=== PATIENT | female | born 1950 | race Caucasian/White ===

== ENCOUNTER → 2016-08-04 | Outpatient (CLI) | payer OTHER ==
[~2016-08-04] MED LIST: ASPEC81; PAXIL; ZOLM1TAB3 PO
[2016-08-04 09:27] LABS: BASO % 0.1 %; BASO ABS # 0.01 K/uL (0-0.2); COMPLETE YES; EOS % 0.7 %; HEMATOCRIT 39.2 % (37-47); IG% 0.1 %; LYMPH % 8.9 %; LYMPH ABS # 0.65 K/uL (1.2-3.4); MEAN CELL VOLUME 86.9 fL (80-100); MEAN CORPUSCULAR HGB CONC 33.4 g/dl (32-36); MEAN PLATELET VOLUME 9.2 fL (7.4-10.4); MONO % 5.9 %; NEUT % 84.3 %; PLATELET COUNT 279 K/uL (130-400); RED BLOOD COUNT 4.51 M/uL (4.2-5.4); WHITE BLOOD COUNT 7.32 K/uL (4.8-10.8)
[2016-08-04 10:08] LABS: ALT/SGPT 24 U/L (12-78); BLOOD UREA NITROGEN 15 mg/dl (7-18); BUN/CREATININE RATIO 20.8 (10-20); CARBON DIOXIDE 28 mmol/L (21-32); CHLORIDE 103 mmol/L (98-107); CHOLESTEROL 180 mg/dl (0-200); CREATININE 0.71 mg/dl (0.60-1.20); GLUCOSE 103 mg/dl (70-99); POTASSIUM 3.9 mmol/L (3.5-5.1); SODIUM 140 mmol/L (136-145); TRIGLYCERIDES 171 mg/dl (0-150); VERY LOW DENSITY LIPOPROT CALC 34 mg/dl
[2016-08-04 10:11] LABS: ALB/GLOB RATIO 0.9 (0.9-2); ALKALINE PHOSPHATASE 113 U/L (45-117); AST/SGOT 22 U/L (15-37); CHOLESTEROL/HDL RATIO 3.9; HDL CHOLESTEROL 46 mg/dl; LDL CHOLESTEROL CALCULATED 100 mg/dl
[2016-08-04 10:30] LABS: CALCIUM 9.8 mg/dl (8.5-10.1)
== END | disposition home or self-care (01) ==
LOC: C.LAB1850 08:41
PROVIDERS: ATTEND Nurse Practitioner Adult Health
DX: E78.00 Pure hypercholesterolemia, unspecified (principal); E55.9 Vitamin D deficiency, unspecified

== ENCOUNTER → 2016-08-30 | Outpatient (CLI) | payer OTHER ==
--- NOTE | 2016-08-30 16:00 | MAMMOGRAPHY REPORT ---
BILATERAL DIGITAL SCREENING MAMMOGRAM WITH CAD: 08/30/2016 CLINICAL HISTORY: Routine screening. Patient has no complaints. TECHNIQUE: Bilateral CC and MLO views were obtained. Current study was also evaluated with a Comput er Aided Detection (CAD) system. COMPARISON: Comparison is made to exams dated: 08/25/2015 mammogram, 08/23/2014 mammogram, 04/26/2013 m ammogram, 05/09/2012 mammogram, 04/25/2012 mammogram, and 04/22/2011 mammogram - [facility] nter. BREAST COMPOSITION: There are scattered areas of fibroglandular density in both breasts. FINDINGS: The parenchymal pattern is unchanged. No developing mass, architectural distortion or clus ter of suspicious microcalcifications is seen in either breast. IMPRESSION: ACR BI-RADS CATEGORY 2: BENIGN There is no mammographic evidence of malignancy. A 1 year screening mammogram is recommended. The pa tient will receive written notification of the results. Approximately 10% of breast cancers are not detected with mammography. A negative mammographic report should not delay biopsy if a clinically suggestive mass is present. Brisa Tirado M.D. ay/:08/30/2016 14:39:50 [employer] Molder: Yelena RODRIGUEZ(dEuarda)(Kimani)(BD), [facility] letter sent: Normal 1/2 BI-RADS Code: ACR BI-RADS Category 2: Benign
== END | disposition home or self-care (01) ==
LOC: C.MAMM 13:14
PROVIDERS: ATTEND Obstetrics & Gynecology
DX: Z12.31 Encounter for screening mammogram for malignant neoplasm of breast (principal)

== ENCOUNTER → 2017-02-18 | Outpatient (CLI) | payer OTHER ==
[2017-02-18 10:15] LABS: BLOOD UREA NITROGEN 19 mg/dl (7-18); BUN/CREATININE RATIO 25.4 (10-20); CALCIUM 9.7 mg/dl (8.5-10.1); CARBON DIOXIDE 30 mmol/L (21-32); CHLORIDE 103 mmol/L (98-107); CREATININE 0.74 mg/dl (0.60-1.20); GLUCOSE 102 mg/dl (70-99); MAGNESIUM 2.7 mg/dl (1.8-2.4); SODIUM 136 mmol/L (136-145)
== END | disposition home or self-care (01) ==
LOC: C.LAB1850 08:48
PROVIDERS: ATTEND Nurse Practitioner Adult Health
DX: R25.2 Cramp and spasm (principal)

== ENCOUNTER 2021-01-29 12:23 | Inpatient (IN) ==
[2021-01-29 13:41] LABS: Basophils # (auto) 0.01 K/uL (0-0.2); Basophils % (auto) 0.1 %; Eosinophils # (auto) 0.12 K/uL (0-0.5); Eosinophils % (auto) 1.5 %; Hematocrit (blood only) 37.3 % (37-47); Hemoglobin 13.1 g/dL (12.0-16.0); Immature Granulocytes # (auto) 0.02 K/uL (0.00-0.02); Immature Granulocytes % (auto) 0.2 %; Lymphocytes # (auto) 0.28 K/uL (1.2-3.4); Lymphocytes % (auto) 3.4 %; Mean Corpuscular Hgb Conc 35.1 g/dL (32-36); Mean Corpuscular Volume 91.2 fL (80-100); Mean Platelet Volume 9.5 fL (7.4-10.4); Monocytes # (auto) 0.34 K/uL (0.11-0.59); Monocytes % (auto) 4.2 %; Neutrophils # (auto) 7.36 K/uL (1.4-6.5); Neutrophils % (auto) 90.6 %; Platelet Count 182 K/uL (130-400); RDW Coefficient of Variation 13.5 % (11.5-14.5); RDW Standard Deviation 44.8 fL (36.4-46.3); Red Blood Count 4.09 M/uL (4.2-5.4); White Blood Count 8.13 K/uL (4.8-10.8)
[2021-01-29 13:47] LABS: Appearance Urine Clear (Clear); Bacteria Urine Automated Negative (Negative); Blood Urine Negative (Negative); Color Urine Dark Yellow; Epithelial Cell Urine Auto 20-30 /lpf (0-5); Glucose Urine UA Negative (Negative); Ketones Urine Negative (Negative); Leukocyte Esterase Urine 1+ (Negative); Nitrite Urine Positive (Negative); Protein Urine Trace (Negative); Urobilinogen Urine Positive (Negative); pH Urine 5.5 (4.5-7.5)
[2021-01-29 13:55] LABS: Bilirubin Urine 3+ (Negative)
[2021-01-29 14:06] LABS: Alanine Aminotransferase 530 U/L (12-78); Albumin Level 3.9 gm/dl (3.4-5.0); Alkaline Phosphatase 371 U/L (45-117); Aspartate Aminotransferase 324 U/L (15-37); BUN Creatinine Ratio 13.9 (10-20); Bilirubin,Total 6.9 mg/dl (0.2-1); Blood Urea Nitrogen 14 mg/dl (7-18); Carbon Dioxide 28 mmol/L (21-32); Chloride 101 mmol/L (98-107); Creatinine Clr Calc Pharmacy 48.1 ml/min; Est GFR (African American) 67.7 ml/min; Est GFR (Non-African American) 58.4 ml/min; Globulin 4.1 gm/dl (2.5-4.0); Glucose 123 mg/dl (70-99); Lipase 193 U/L (73-393); Potassium 3.1 mmol/L (3.5-5.1); Sodium 135 mmol/L (136-145)
[2021-01-29] MEDS ORDERED: SODIUM CHLORIDE 0.9% 1000ML 1,000 ML IV STA (14:31)
[2021-01-29 14:52] LABS: Prothrombin Time 10.5 Seconds (9.0-12.0)
--- NOTE | 2021-01-29 15:03 | Emergency Department Note ---
Impression & Plan Jaundice, obstructive, intrahepatic, Vomiting, Common bile duct dilatation ED Provider Note NAME: LUIS CARLOS COVARRUBIAS AGE: 70 SEX: F : 1950 ARRIVES VIA: Walk-In INFORMANT: Patient, ED PROVIDER(S): Jordon Wilkinson DO CHIEF COMPLAINT: Fever HPI:The patient is a 70-year-old female who presented to the emergency department for an evaluation of febrile illness. The patient has a history of B- cell lymphoma. She has a history of Waldenstrm's macroglobulinemia. She is been treated with chemotherapy. She has had no treatment since October of this year. The patient states that she has noticed over the course the last few days she has become very weak. She also has extensive pain from the history of previously noted cancer. The patient states that she has known metastatic disease. She states that she started noticing that her skin was turning yellow. She has a history of gallbladder removal in the past. The patient states that she had a retained ductal stone as well which had to be removed prior to having chemotherapy. The patient denies having any recent trauma. She does state that she is noticing back pain as well as nausea vomiting. She is have significant troubles keeping down food because of the amount of vomiting. The patient also notices upper abdominal pain. She describes it as lower chest and upper abdominal pain. She did have a fall recently and injured her right ribs but she states this pain is different. ROS: See above HPI for pertinent positives & negatives. A total of 10 systems reviewed and were otherwise negative. PAST MEDICAL HISTORY: See Below PAST SURGICAL HISTORY: See Below FAMILY HISTORY: See Below SOCIAL HISTORY: See Below HOME MEDICATIONS: See Below ALLERGIES: See Below VITALS: See Below PHYSICAL EXAMINATION: GENERAL: Patient is awake alert in no acute distress patient is resting comfortably and showing no signs of anxiety EYES: The conjunctivae are icteric. The pupils are round and reactive. EARS, NOSE, MOUTH AND THROAT: The nose is without any evidence of any deformity. Mucous membranes are dry. NECK: The neck is nontender and supple. RESPIRATORY: Normal respiratory effort is noted there is no evidence of wheezing rhonchi or rales CARDIOVASCULAR: Regular rate and rhythm noted there no murmurs rubs or gallops normal S1 normal S2. GASTROINTESTINAL: The abdomen is soft and mildly distended. There is diffuse upper abdominal tenderness to palpation. There is no guarding rigidity. MUSCULOSKELETAL/EXTREMITIES: There is no evidence of gross deformity full range of motion is noted in the hips and shoulders. SKIN: Skin is jaundiced. There is slight pedal edema but no pitting edema. NEUROLOGIC: Patient is awake alert and oriented x3 strength is symmetric patellar reflexes are 2+ bilaterally MEDICAL DECISION MAKING: The patient is a 70-year-old female who presented to the emergency department for an evaluation of vomiting. The patient noticed jaundice. The patient has had similar episodes in the past with common bile duct stones. She did have her gallbladder removed in the past. I discussed the patient's laboratory and radiographic studies with her. She was treated with fluids and IV antiemetics. She was also started on IV antibiotics. She was reevaluated multiple times. On subsequent reevaluation she was feeling much better. I discussed her case with the on-call general surgeon as well as the on-call outside rigger group. The patient likely will require an ERCP. She has had this procedure in the past. I did recommend an MRCP in the meantime and continued IV antibiotics and n.p.o. after midnight. I discussed her case with the on-call [facility] hospitalist group. They will evaluate the patient in the emergency department for further management and disposition. Triage Nursing notes reviewed. Prior medical records reviewed Vital Signs: reviewed and remarkable for hypertension tachycardia and tachypnea. Differential diagnosis: Cardiac ischemia, aortic dissection, pulmonary embolism, pneumothorax, pneumonia, pericarditis, myocarditis, esophageal rupture, GERD, cholecystitis, pancreatitis, musculoskeletal, as well as other pathologies. ER treatment provided: See below Diagnostics interpreted by me: ECG: EKG was obtained in the emergency department. My interpretation is sinus rhythm at 86 bpm. There was no ectopy. Poor R wave progression was noted with a left bundle branch block pattern suggested. No previous tracing was available. Cardiac Monitoring: An order was placed for continuous cardiac monitoring. The monitor shows a rate of 100 bpm with sinus tachycardia rhythm. Laboratory studies: As stated above and show below. Imaging studies: See below Consultation(s): I discussed this case with Dr. Khan who is on-call for the general surgical group. I discussed this case with Dr. Briceño who is on-call for unassigned gastroenterology. He does recommend that the patient be n.p.o. after midnight in preparation for possible ERCP. He does recommend antibiotics. He also recommends MRCP if available this evening. I discussed this case with Dr. Eduardo who is on-call for the [facility] hospitalist group. Past Med/Surg History Medical History Anemia long time ago Hearing deficit Migraine Osteoarthritis PVC's (premature ventricular contractions) Trigeminal neuralgia of left side of face Surgical History History of bone marrow biopsy History of cholecystectomy History of colonoscopy with polypectomy History of dilatation and curettage History of left cataract extraction History of right breast biopsy with cyst removal---benign History of tonsillectomy History of tooth extraction Family History Father Family hx colonic polyps Myocardial infarction Mother Family hx colonic polyps Grandmother (Paternal) Family hx of colon cancer Colorectal cancer Uncle Family hx of colon cancer paternal Colorectal cancer Sister Breast cancer Lung cancer Other Allergies Cancer Heart disease Lung disease No family history of adverse response to anesthesia Denies family history of Tuberculosis Ovarian cancer Prostate cancer Diabetes Emphysema, unspecified Asthma Social History Smoking Status: Never smoker Second Hand Exposure: No; Hx Alcohol Use: Yes Alcohol type: beer, wine and hard liquor Alcohol Intake Frequency: Monthly or Less Hx Substance Use: No Preferred Language: Mozambican Communication Ability: Effective Visual Impairment: No Limitations Hearing Ability: Use of Hearing Aid Massotherapist Required: No Beliefs That Will Affect Care: None marital status: Current Living Situation: Spouse current occupational status: retired Feels Safe at Home: Yes Childhood Exposure to Second-Hand Smoke: No Dental Care, Regularly: Yes Physical Activity Frequency: Daily Seatbelt Use: always Sunscreen Use: Yes Assistive Devices: Glasses and Hearing Aid - Bilateral Allergies Allergies Allergy/AdvReac Type Severity Reaction Status Date / Time Penicillins Allergy Intermediate HIVES A Verified 01/29/21 15:41 CHILD Sulfa (Sulfonamide Allergy Intermediate HIVES A Verified 01/29/21 15:41 Antibiotics) CHILD rituximab [From Rituxan] Allergy pain, Verified 01/29/21 15:41 nausea, swollen mouth and uvula levofloxacin AdvReac Mild LEG PAIN Verified 01/29/21 15:41 Home Meds Home Medications Medication Instructions Recorded Confirmed cholecalciferol (vitamin D3) 50 2,000 unit PO QAM 02/03/18 01/29/21 mcg (2,000 unit) tablet (Vitamin D3) potassium 99 mg tablet 99 mg PO QAM 02/03/18 01/29/21 vitamin B complex 1 tab PO QAM 02/03/18 01/29/21 calcium carb-vit D3-minerals 600 1 tab PO QAM 12/17/19 01/29/21 mg calcium-400 unit tablet magnesium oxide 400 mg PO QAM 12/17/19 01/29/21 biotin 400 mcg tablet 400 mcg PO DAILY tab 09/24/20 01/29/21 acyclovir 400 mg tablet 400 mg PO BID 01/29/21 01/29/21 zolmitriptan 2.5 mg tablet (Zomig) 0 mg PO UD PRN 01/29/21 01/29/21 Previous Rx's Medication Instructions Recorded pantoprazole 40 mg tablet,delayed 40 mg PO QAM #30 tab 12/26/19 release Results & Data (ED) Vital Signs Vital Signs - 24 hr 01/29/21 12:32 01/29/21 14:30 01/29/21 14:33 Temperature 37.1 C Temperature Source Skin Pulse Rate 88 94 H Pulse Rate [Apical] 93 H Pulse Rate from SpO2 Sensor 93 H Pulse Rhythm Regular Pulse Strength Normal Respiratory Rate 20 16 24 Respiratory Effort / Characteristics Non-Labored Spontaneous Non-Labored Spontaneous Respiratory Depth Normal Normal Respiratory Pattern Regular Regular Blood Pressure 159/84 H Blood Pressure [Left Arm] 175/60 H Blood Pressure Mean 109 Blood Pressure Mean [Left Arm] 98 Pulse Oximetry 97 97 74 L Oxygen Delivery Method Room Air Room Air Sepsis Recent Fever Within 48 Hours No Sepsis New/Unexplained Change in Mental Status N/A Sepsis Action Taken by Nursing No Action Required 01/29/21 15:00 01/29/21 15:30 01/29/21 16:00 Temperature Temperature Source Pulse Rate 94 H 95 H 97 H Pulse Rate [Apical] Pulse Rate from SpO2 Sensor 95 H 95 H 97 H Pulse Rhythm Pulse Strength Respiratory Rate 12 20 32 H Respiratory Effort / Characteristics Respiratory Depth Respiratory Pattern Blood Pressure Blood Pressure [Left Arm] Blood Pressure Mean Blood Pressure Mean [Left Arm] Pulse Oximetry 98 96 96 Oxygen Delivery Method Sepsis Recent Fever Within 48 Hours Sepsis New/Unexplained Change in Mental Status Sepsis Action Taken by Nursing 01/29/21 16:30 01/29/21 17:00 01/29/21 17:31 Temperature Temperature Source Pulse Rate 102 H 100 H Pulse Rate [Apical] Pulse Rate from SpO2 Sensor 103 H 100 H 99 H Pulse Rhythm Pulse Strength Respiratory Rate 21 36 H Respiratory Effort / Characteristics Respiratory Depth Respiratory Pattern Blood Pressure 175/60 H Blood Pressure [Left Arm] Blood Pressure Mean 98 Blood Pressure Mean [Left Arm] Pulse Oximetry 94 93 95 Oxygen Delivery Method Sepsis Recent Fever Within 48 Hours Sepsis New/Unexplained Change in Mental Status Sepsis Action Taken by [facility] Medications Current Medication List: was personally reviewed by me Laboratory Data Attestation: I reviewed the patient's lab results. Result diagrams: 01/29/21 13:20 01/29/21 13:20 Lab Results 01/29/21 01/29/21 01/29/21 Range/Units 13:20 13:20 13:20 WBC 8.13 (4.8-10.8) K/uL RBC 4.09 L (4.2-5.4) M/uL Hgb 13.1 (12.0-16.0) g/dL Hct 37.3 (37-47) % MCV 91.2 (80-100) fL MCH 32.0 (25-34) pg MCHC 35.1 (32-36) g/dL RDW Std Deviation 44.8 (36.4-46.3) fL RDW Coeff of Vignesh 13.5 (11.5-14.5) % Plt Count 182 (130-400) K/uL MPV 9.5 (7.4-10.4) fL Immature Gran % (Auto) 0.2 % Neut % (Auto) 90.6 % Lymph % (Auto) 3.4 % Navarro % (Auto) 4.2 % Eos % (Auto) 1.5 % Baso % (Auto) 0.1 % Neut # (Auto) 7.36 H (1.4-6.5) K/uL Lymph # (Auto) 0.28 L (1.2-3.4) K/uL Navarro # (Auto) 0.34 (0.11-0.59) K/uL Eos # (Auto) 0.12 (0-0.5) K/uL Baso # (Auto) 0.01 (0-0.2) K/uL Immature Gran # (Auto) 0.02 (0.00-0.02) K/uL ESR (0-30) mm/hr PT (9.0-12.0) Seconds INR (0.9-1.1) Sodium 135 L (136-145) mmol/L Potassium 3.1 L (3.5-5.1) mmol/L Chloride 101 (98-107) mmol/L Carbon Dioxide 28 (21-32) mmol/L Anion Gap 6.0 (3-11) BUN 14 (7-18) mg/dl Creatinine 0.98 (0.6-1.2) mg/dl Est Cr Clr Drug Dosing 48.1 ml/min Est GFR ( Amer) 67.7 ml/min Est GFR (Non-Af Amer) 58.4 ml/min BUN/Creatinine Ratio 13.9 (10-20) Glucose 123 H (70-99) mg/dl Calcium 10.0 (8.5-10.1) mg/dl Total Bilirubin 6.9 H (0.2-1) mg/dl Direct Bilirubin 5.6 H (0-0.2) mg/dl AST 324 H (15-37) U/L ALT 530 H (12-78) U/L Alkaline Phosphatase 371 H (45-117) U/L Troponin I < 0.015 (0-0.045) ng/ml Total Protein 8.0 (6.4-8.2) gm/dl Albumin 3.9 (3.4-5.0) gm/dl Globulin 4.1 H (2.5-4.0) gm/dl Albumin/Globulin Ratio 1.0 (0.9-2) Lipase 193 (73-393) U/L Procalcitonin (0-0.5) ng/ml Urine Color Dark Yellow Urine Appearance Clear (Clear) Urine pH 5.5 (4.5-7.5) Ur Specific Keene 1.020 (1.000-1.030) Urine Protein Trace H (Negative) Urine Glucose (UA) Negative (Negative) Urine Ketones Negative (Negative) Urine Blood Negative (Negative) Urine Nitrite Positive A (Negative) Urine Bilirubin 3+ H (Negative) Urine Urobilinogen Positive H (Negative) Ur Leukocyte Esterase 1+ H (Negative) Urine WBC (Auto) 5-10 H (0-5) /hpf Urine RBC (Auto) 5-10 H (0-4) /hpf U Hyaline Cast (Auto) 5-10 H (0-5) /lpf U Epithel Cells (Auto) 20-30 H (0-5) /lpf Urine Bacteria (Auto) Negative (Negative) SARS-CoV-2, RNA, NAAT (NEGATIVE) 01/29/21 01/29/21 01/29/21 Range/Units 13:20 13:20 13:20 WBC (4.8-10.8) K/uL RBC (4.2-5.4) M/uL Hgb (12.0-16.0) g/dL Hct (37-47) % MCV (80-100) fL MCH (25-34) pg MCHC (32-36) g/dL RDW Std Deviation (36.4-46.3) fL RDW Coeff of Vignesh (11.5-14.5) % Plt Count (130-400) K/uL MPV (7.4-10.4) fL Immature Gran % (Auto) % Neut % (Auto) % Lymph % (Auto) % Navarro % (Auto) % Eos % (Auto) % Baso % (Auto) % Neut # (Auto) (1.4-6.5) K/uL Lymph # (Auto) (1.2-3.4) K/uL Navarro # (Auto) (0.11-0.59) K/uL Eos # (Auto) (0-0.5) K/uL Baso # (Auto) (0-0.2) K/uL Immature Gran # (Auto) (0.00-0.02) K/uL ESR (0-30) mm/hr PT 10.5 (9.0-12.0) Seconds INR 1.0 (0.9-1.1) Sodium (136-145) mmol/L Potassium (3.5-5.1) mmol/L Chloride (98-107) mmol/L Carbon Dioxide (21-32) mmol/L Anion Gap (3-11) BUN (7-18) mg/dl Creatinine (0.6-1.2) mg/dl Est Cr Clr Drug Dosing ml/min Est GFR ( Amer) ml/min Est GFR (Non-Af Amer) ml/min BUN/Creatinine Ratio (10-20) Glucose (70-99) mg/dl Calcium (8.5-10.1) mg/dl Total Bilirubin (0.2-1) mg/dl Direct Bilirubin (0-0.2) mg/dl AST (15-37) U/L ALT (12-78) U/L Alkaline Phosphatase (45-117) U/L Troponin I Cancelled (0-0.045) ng/ml Total Protein (6.4-8.2) gm/dl Albumin (3.4-5.0) gm/dl Globulin (2.5-4.0) gm/dl Albumin/Globulin Ratio (0.9-2) Lipase (73-393) U/L Procalcitonin 0.70 H (0-0.5) ng/ml Urine Color Urine Appearance (Clear) Urine pH (4.5-7.5) Ur Specific Keene (1.000-1.030) Urine Protein (Negative) Urine Glucose (UA) (Negative) Urine Ketones (Negative) Urine Blood (Negative) Urine Nitrite (Negative) Urine Bilirubin (Negative) Urine Urobilinogen (Negative) Ur Leukocyte Esterase (Negative) Urine WBC (Auto) (0-5) /hpf Urine RBC (Auto) (0-4) /hpf U Hyaline Cast (Auto) (0-5) /lpf U Epithel Cells (Auto) (0-5) /lpf Urine Bacteria (Auto) (Negative) SARS-CoV-2, RNA, NAAT (NEGATIVE) 01/29/21 01/29/21 Range/Units 13:20 17:23 WBC (4.8-10.8) K/uL RBC (4.2-5.4) M/uL Hgb (12.0-16.0) g/dL Hct (37-47) % MCV (80-100) fL MCH (25-34) pg MCHC (32-36) g/dL RDW Std Deviation (36.4-46.3) fL RDW Coeff of Vignesh (11.5-14.5) % Plt Count (130-400) K/uL MPV (7.4-10.4) fL Immature Gran % (Auto) % Neut % (Auto) % Lymph % (Auto) % Navarro % (Auto) % Eos % (Auto) % Baso % (Auto) % Neut # (Auto) (1.4-6.5) K/uL Lymph # (Auto) (1.2-3.4) K/uL Navarro # (Auto) (0.11-0.59) K/uL Eos # (Auto) (0-0.5) K/uL Baso # (Auto) (0-0.2) K/uL Immature Gran # (Auto) (0.00-0.02) K/uL ESR 33 H (0-30) mm/hr PT (9.0-12.0) Seconds INR (0.9-1.1) Sodium (136-145) mmol/L Potassium (3.5-5.1) mmol/L Chloride (98-107) mmol/L Carbon Dioxide (21-32) mmol/L Anion Gap (3-11) BUN (7-18) mg/dl Creatinine (0.6-1.2) mg/dl Est Cr Clr Drug Dosing ml/min Est GFR ( Amer) ml/min Est GFR (Non-Af Amer) ml/min BUN/Creatinine Ratio (10-20) Glucose (70-99) mg/dl Calcium (8.5-10.1) mg/dl Total Bilirubin (0.2-1) mg/dl Direct Bilirubin (0-0.2) mg/dl AST (15-37) U/L ALT (12-78) U/L Alkaline Phosphatase (45-117) U/L Troponin I (0-0.045) ng/ml Total Protein (6.4-8.2) gm/dl Albumin (3.4-5.0) gm/dl Globulin (2.5-4.0) gm/dl Albumin/Globulin Ratio (0.9-2) Lipase (73-393) U/L Procalcitonin (0-0.5) ng/ml Urine Color Urine Appearance (Clear) Urine pH (4.5-7.5) Ur Specific Keene (1.000-1.030) Urine Protein (Negative) Urine Glucose (UA) (Negative) Urine Ketones (Negative) Urine Blood (Negative) Urine Nitrite (Negative) Urine Bilirubin (Negative) Urine Urobilinogen (Negative) Ur Leukocyte Esterase (Negative) Urine WBC (Auto) (0-5) /hpf Urine RBC (Auto) (0-4) /hpf U Hyaline Cast (Auto) (0-5) /lpf U Epithel Cells (Auto) (0-5) /lpf Urine Bacteria (Auto) (Negative) SARS-CoV-2, RNA, NAAT NEGATIVE (NEGATIVE) Administered Medications Discontinued Medications Sodium Chloride (Nss 1000ml) 1,000 mls @ 999 mls/hr IV .[id number] STA Stop: 01/29/21 15:31 Last Infusion: 01/29/21 16:10 Dose: 0 mls/hr Documented by: [id number] Admin: 01/29/21 15:07 Dose: 999 mls/hr Documented by: [id number] Ceftriaxone Sodium (Rocephin) 1,000 mg in 50 mls @ 100 mls/hr IV NOW STA Stop: 01/29/21 15:51 Last Infusion: 01/29/21 17:10 Dose: 0 mls/hr Documented by: [id number] Admin: 01/29/21 16:31 Dose: 100 mls/hr Documented by: [id number] Ioversol (Optiray 320 125ml) 119 ml IV ONCE ONE Stop: 01/29/21 16:36 Last Admin: 01/29/21 16:35 Dose: 119 ml Documented by: [id number] Imaging Data Radiologist's Impression: Abdomen/Pelvis CT 01/29/21 14:31 CT OF THE ABDOMEN AND PELVIS WITH CONTRAST CLINICAL HISTORY: Upper abdomen pain. History of Waldenstrom's macroglobulinemia. COMPARISON STUDY: CT of the abdomen and pelvis December 24, 2020. TECHNIQUE: Following IV administration of 119 mL of Optiray, axial images of the abdomen and pelvis were obtained from the lung bases to the proximal femurs. Images were reviewed in the axial, sagittal, and coronal planes. IV contrast was administered without complication. Automated exposure control was utilized for the study. A dose lowering technique was utilized adhering to the principles of ALARA. FINDINGS: The chest CT will reported separately. No pneumatosis, free air or portal venous gas is present. The previously described submucosal lesion within the gastric cardia is better depicted on prior exam with oral contrast. A left hepatic lobe cyst measures 4.1 cm. Intermediate attenuation 2.7 cm right hepatic lobe lesion on image 146 of [id number] of December 24, 2020. Low- attenuation lobulated lesion inferior to the left adrenal gland is unchanged. This favors a lymphangioma. The adrenal glands and pancreas are unremarkable. There is no pancreatic ductal dilatation. There is no peripancreatic infiltration. Biliary ductal dilatation is developed since prior exam. Common bile duct measures 1.2 cm in caliber. There may be mild wall enhancement of the common hepatic and common bile duct. In addition, there is suspected infiltration/trace fluid within the cortez hepatis. Splenomegaly is similar to prior exam. Several hypodense splenic lesions measuring up to 2.9 cm are similar to prior CT. These have decreased in size since earlier CT of November 24. There is no hydronephrosis. The kidneys are unremarkable. Sigmoid diverticulosis is noted without evidence for acute diverticulitis. Caliber and wall thickness of small and large bowel are normal. The appendix is normal. Calcified fibroids are incidentally noted. There is no acute fracture or jeanie picious lesion within the visualized skeletal structures. IMPRESSION: 1. Interval development of biliary ductal dilatation with mild wall enhancement of the common hepatic and common bile ducts and trace fluid/infiltration within the cortez hepatis. The findings are nonspecific and cholangitis is within the differential. If abnormal liver function tests, GI consultation is recommended. 2. No significant change in splenomegaly and several hypodense splenic lesions since CT of December 24, 2020. Findings remain improved when compared to initial CT of December 03, 2019. 3. No change in indeterminate 2.7 cm right hepatic lobe lesion. 4. Redemonstration of a suspected submucosal lesion within the gastric cardia. ACT 112: Negative or not required by law. Electronically signed by: Ron Armas M.D. 01/29/2021 5:24 PM Chest X-Ray 01/29/21 14:32 XR chest 1V portable CLINICAL HISTORY: Fever COMPARISON STUDY: Chest CT December 24, 2020. FINDINGS: Lung volumes are normal. Lungs are clear. There is no pneumothorax or pleural effusion. Mild cardiomegaly is unchanged. Mediastinal contours are normal. There is no evidence for pulmonary edema. IMPRESSION: No acute cardiopulmonary findings. ACT 112: Negative or not required by law. Electronically signed by: Ron Armas M.D. 01/29/2021 3:57 PM Chest CTA 01/29/21 15:03 CT ANGIOGRAPHY OF THE CHEST, PULMONARY EMBOLUS PROTOCOL CLINICAL HISTORY: Atypical chest pain. Upper abdominal pain. History of Waldenstrom's macroglobulinemia. Evaluate for pulmonary embolus. COMPARISON STUDY: Chest CT December 24, 2020. Chest radiograph performed earlier today TECHNIQUE: Following IV administration of 119 mL of Optiray, helical axial images of the chest were obtained utilizing the pulmonary embolus protocol. Ma ximal intensity projections and sagittal and coronal reformats were viewed on an independent 3D workstation. IV contrast was administered without complication. Automated exposure control was utilized for the study. A dose lowering technique was utilized adhering to the principles of ALARA. CT DOSE: 558.82 mGy.cm FINDINGS: No pulmonary emboli are identified. There is no thoracic aortic dissection. Mild cardiomegaly is noted. There is no pericardial effusion. No enlarged axillary, mediastinal or hilar lymph nodes are present. No pneumothorax or pleural effusion is noted. Linear and groundglass opacities reflect atelectasis. No acute rib or thoracic spine fractures identified. Abdomen and pelvis will be reported separately. Splenomegaly is better depicted on that exam. There is a left hepatic lobe cyst. IMPRESSION: 1. No pulmonary emboli identified. 2. No acute process within the chest. ACT 112: Negative or not required by law. Electronically signed by: Ron Armas M.D. 01/29/2021 5:05 PM Discharge Plan Visit Data Chief Complaint: Fever Stated Complaint: PAIN IN TORSO/VOMITING/FEVER UP TO 101.5 ED Provider: Jordon Wilkinson Discharge Problem: Jaundice, obstructive, intrahepatic, Vomiting, Common bile duct dilatation Patient Disposition: Being Evaluated by Hospitalist Forms Stand Alone Forms: [facility] Prescriptions Prescriptions: No Action pantoprazole 40 mg tablet,delayed release (DR/EC) 40 mg PO QAM Qty: 30 RF: 5 potassium 99 mg Tablet 99 mg PO QAM RF: 0 vitamin B complex Tablet 1 tab PO QAM RF: 0 cholecalciferol (vitamin D3) [Vitamin D3] 2,000 unit Tablet 2,000 unit PO QAM RF: 0 calcium carbonate-vit D3-min 600 mg calcium- 400 unit Tablet 1 tab PO QAM RF: 0 magnesium oxide 400 mg magnesium Tablet 400 mg PO QAM RF: 0 biotin 400 mcg tablet 400 mcg PO DAILY RF: 0 acyclovir 400 mg tablet 400 mg PO BID RF: 0 zolmitriptan [Zomig] 2.5 mg Tablet 0 mg PO UD PRN (Reason: Migraine Headache) RF: 0 Referrals Referrals: Sigrid Reese MD [Primary Care Provider] -
[2021-01-29] MEDS ORDERED: cefTRIAXone SODIUM 1,000 MG/50 ML BAG IV STA (15:22)
[2021-01-29 15:47] LABS: Troponin I < 0.015 ng/ml (0-0.045)
--- NOTE | 2021-01-29 15:58 | XRay Report ---
XR chest 1V portable CLINICAL HISTORY: Fever COMPARISON STUDY: Chest CT December 24, 2020. FINDINGS: Lung volumes are normal. Lungs are clear. There is no pneumothorax or pleural effusion. Mil d cardiomegaly is unchanged. Mediastinal contours are normal. There is no evidence for pulmonary sammy a. IMPRESSION: No acute cardiopulmonary findings. ACT 112: Negative or not required by law. Electronically signed by: Ron Armas M.D. 01/29/2021 3:57 PM
[2021-01-29] MEDS ORDERED: OPTIRAY 320 125ml IV ONE (16:35)
--- NOTE | 2021-01-29 17:06 | CT Scan Report ---
CT ANGIOGRAPHY OF THE CHEST, PULMONARY EMBOLUS PROTOCOL CLINICAL HISTORY: Atypical chest pain. Upper abdominal pain. History of Waldenstrom's macroglobulinem ia. Evaluate for pulmonary embolus. COMPARISON STUDY: Chest CT December 24, 2020. Chest radiograph performed earlier today TECHNIQUE: Following IV administration of 119 mL of Optiray, helical axial images of the chest were o btained utilizing the pulmonary embolus protocol. Maximal intensity projections and sagittal and cor onal reformats were viewed on an independent 3D workstation. IV contrast was administered without co mplication. Automated exposure control was utilized for the study. A dose lowering technique was ut ilized adhering to the principles of ALARA. CT DOSE: 558.82 mGy.cm FINDINGS: No pulmonary emboli are identified. There is no thoracic aortic dissection. Mild cardiomeg pierre is noted. There is no pericardial effusion. No enlarged axillary, mediastinal or hilar lymph node s are present. No pneumothorax or pleural effusion is noted. Linear and groundglass opacities reflect atelectasis. No acute rib or thoracic spine fractures identified. Abdomen and pelvis will be reporte d separately. Splenomegaly is better depicted on that exam. There is a left hepatic lobe cyst. IMPRESSION: 1. No pulmonary emboli identified. 2. No acute process within the chest. ACT 112: Negative or not required by law. Electronically signed by: Ron Armas M.D. 01/29/2021 5:05 PM
--- NOTE | 2021-01-29 17:25 | CT Scan Report ---
CT OF THE ABDOMEN AND PELVIS WITH CONTRAST CLINICAL HISTORY: Upper abdomen pain. History of Waldenstrom's macroglobulinemia. COMPARISON STUDY: CT of the abdomen and pelvis December 24, 2020. TECHNIQUE: Following IV administration of 119 mL of Optiray, axial images of the abdomen and pelvis w ere obtained from the lung bases to the proximal femurs. Images were reviewed in the axial, sagittal, and coronal planes. IV contrast was administered without complication. Automated exposure control w as utilized for the study. A dose lowering technique was utilized adhering to the principles of BRIDGETTE Cates. FINDINGS: The chest CT will reported separately. No pneumatosis, free air or portal venous gas is pre sent. The previously described submucosal lesion within the gastric cardia is better depicted on prio r exam with oral contrast. A left hepatic lobe cyst measures 4.1 cm. Intermediate attenuation 2.7 cm right hepatic lobe lesion on image 146 of [address] of December 24, 2020. Low-attenuat ion lobulated lesion inferior to the left adrenal gland is unchanged. This favors a lymphangioma. The adrenal glands and pancreas are unremarkable. There is no pancreatic ductal dilatation. There is no peripancreatic infiltration. Biliary ductal dilatation is developed since prior exam. Common bile kadi t measures 1.2 cm in caliber. There may be mild wall enhancement of the common hepatic and common naldo e duct. In addition, there is suspected infiltration/trace fluid within the cortez hepatis. Splenomega ly is similar to prior exam. Several hypodense splenic lesions measuring up to 2.9 cm are similar to prior CT. These have decreased in size since earlier CT of November 25, 2019. There is no hydronephr osis. The kidneys are unremarkable. Sigmoid diverticulosis is noted without evidence for acute divert iculitis. Caliber and wall thickness of small and large bowel are normal. The appendix is normal. Luis cified fibroids are incidentally noted. There is no acute fracture or suspicious lesion within the vi sualized skeletal structures. IMPRESSION: 1. Interval development of biliary ductal dilatation with mild wall enhancement of the common hepatic and common bile ducts and trace fluid/infiltration within the cortez hepatis. The findings are nonspe cific and cholangitis is within the differential. If abnormal liver function tests, GI consultation i s recommended. 2. No significant change in splenomegaly and several hypodense splenic lesions since CT of December. Findings remain improved when compared to initial CT of December 03, 2019. 3. No change in indeterminate 2.7 cm right hepatic lobe lesion. 4. Redemonstration of a suspected submucosal lesion within the gastric cardia. ACT 112: Negative or not required by law. Electronically signed by: Ron Armas M.D. 01/29/2021 5:24 PM
[2021-01-29 17:57] LABS: Bilirubin Direct 5.6 mg/dl (0-0.2)
[2021-01-29] MEDS ORDERED: ERTAPENEM SODIUM 1,000 MG in SODIUM CHLORIDE 0.9% 50 ML IV ONE (19:00)
--- NOTE | 2021-01-29 19:09 | History & Physical Report ---
Date of Service January 29, 2021 Assessment & Plan (1) Jaundice, obstructive, intrahepatic: Plan: Cholangitis with acute liver injury- elevated Liver enzymes with jaundice- normal INR - biliary ductal dilation- Elevated LFTs, ALKpo4, Bili, Normal lipase - Will keep NPO - MRCP - Rocephin 2gm IV q24 with Ertapenem 1GM IV q24----> If worsens or not clinically better change to Zosyn - GI consult- appreciate assistance - Follow daily CMPs and INR - Blood cultures pending - PCT 0.70 (2) Common bile duct dilatation: Plan: As above Cholangitis (3) Vomiting: Plan: Resloved - follow (4) B-cell lymphoma: Plan: Follows with Hem/ONC giesinger - She has completed her CHEMO regime- is in follow up phase - Continue Acyclovir prophy 400mg PO daily (5) Gastritis: Plan: Continue omeprazole (6) Hypercholesterolemia: Plan: Not on lipid lowering medications (7) Vitamin D deficiency: Plan: Hold vitamin D and Cholecalciferol History of Present Illness Primary Care Provider: Sigrid Reese MD 70 YOF with past medical history of: B-cell lymphoma on bendamustine (allergic reactions to Rituxan), gastric fundus mass, gastritis, cholecystectomy (>20 years ago), with biliary sphincterotomy in , MR. Patrick comes into the EMD today for complaints of abdominal pain, right lateral chest wall pain, and jaundice. The patient states that she fell on Tuesday night hitting her right chest wall and started to have some "banding like tightness around the front of her chest this waxed and waned up until Tuesday. Tuesday she had some diarrhea and abdominal pain that was associated with fever 101.5, she then came to the parking lot of the hospital, where she threw up 3 times and immediately felt better. She convinced her to take her home. Today her daughters came to see her and noticed that she was jaundiced and convinced her to come to the EMD. In the EMD she had routine labs drawn, CXR, CT scan of the abdomen and pelvis performed. Her CMP was noted for Elevated LFTs, elevated bilirubin, elevated ALKPo4, CT scan of the abdomen and pelvis was noted for ductal dilation with wall enhancement of the common hepatic and bile ducts with trace fluid within cortez hepatis. GI and GS was consulted by the EMD. Patient will be kept NPO and will obtain MRCP tonight. Will place on Rocephin 2GM IV q24 and Ertapenem 1G IV q24 hours. Patient has PCN allergy. Patient has had her COVID vaccines, her COVID test on admission is: NEGATIVE Allergies Allergy/AdvReac Type Severity Reaction Status Date / Time Penicillins Allergy Intermediate HIVES A Verified 01/29/21 15:41 CHILD Sulfa (Sulfonamide Allergy Intermediate HIVES A Verified 01/29/21 15:41 Antibiotics) CHILD rituximab [From Rituxan] Allergy pain, Verified 01/29/21 15:41 nausea, swollen mouth and uvula levofloxacin AdvReac Mild LEG PAIN Verified 01/31/21 08:09 Home Medications Medication Instructions Recorded Confirmed Type cholecalciferol (vitamin D3) 50 2,000 unit PO QAM 02/03/18 01/29/21 History mcg (2,000 unit) tablet (Vitamin D3) potassium 99 mg tablet 99 mg PO QAM 02/03/18 01/29/21 History vitamin B complex 1 tab PO QAM 02/03/18 01/29/21 History calcium carb-vit D3-minerals 600 1 tab PO QAM 12/17/19 01/29/21 History mg calcium-400 unit tablet magnesium oxide 400 mg PO QAM 12/17/19 01/29/21 History pantoprazole 40 mg tablet,delayed 40 mg PO QAM #30 tab 12/26/19 01/29/21 Rx release biotin 400 mcg tablet 400 mcg PO DAILY tab 09/24/20 01/29/21 History acyclovir 400 mg tablet 400 mg PO BID 01/29/21 01/29/21 History zolmitriptan 2.5 mg tablet (Zomig) 0 mg PO UD PRN 01/29/21 01/29/21 History Past Med/Surg History Medical History Anemia long time ago Common bile duct calculus with removal Hearing deficit Migraine Non-Hodgkin lymphoma october 2019 diagnosed Osteoarthritis PVC's (premature ventricular contractions) Trigeminal neuralgia of left side of face Surgical History History of bone marrow biopsy History of cholecystectomy History of colonoscopy with polypectomy History of dilatation and curettage History of esophagogastroduodenoscopy (EGD) History of left cataract extraction History of right breast biopsy with cyst removal---benign History of tonsillectomy History of tooth extraction Family History Father Family hx colonic polyps Myocardial infarction Mother Family hx colonic polyps Grandmother (Paternal) Family hx of colon cancer Colorectal cancer Uncle Family hx of colon cancer paternal Colorectal cancer Sister Breast cancer Lung cancer Other Allergies Cancer Heart disease Lung disease No family history of adverse response to anesthesia Denies family history of Tuberculosis Ovarian cancer Prostate cancer Diabetes Emphysema, unspecified Asthma Social History Smoking Status: Never smoker Second Hand Exposure: No; Do You Dip or Chew Tobacco: No; Tobacco Cessation Education Requested by Patient: No Hx Alcohol Use: No Hx Substance Use: No Preferred Language: Hungarian Communication Ability: Effective Visual Impairment: No Limitations Hearing Ability: Use of Hearing Aid Physician Neonatology Required: No Beliefs That Will Affect Care: None marital status: Current Living Situation: Spouse Current Living Situation Comment: current occupational status: retired Other Information That Helps Us Care for You: No Feels Safe at Home: Yes Safety Concerns: Feels Safe At This Time Childhood Exposure to Second-Hand Smoke: No Dental Care, Regularly: Yes Physical Activity Frequency: Daily Seatbelt Use: always Sunscreen Use: Yes Assistive Devices: Walker Review of Systems Review of Systems: REVIEW OF SYSTEMS: Constitutional: (+) fever, NO sweats or chills Eyes: No diplopia, no worsening or blurred vision ENT: normal hearing, no trouble swallowing Respiratory: No cough, sputum, dyspnea at rest or on exertion Cardiovascular: No chest pain, tightness or palpitations Abdomen: (+) pain, nausea, vomiting, diarrhea, NO constipation Musculoskeletal: No joint pain, calf pain, swelling Neurologic: No weakness, numbness/tingling, or balance problems Psychiatric: No anxiety or depression Skin: (+) jaundice, No rash or itch Physical Exam Physical Exam: PHYSICAL EXAM: General: awake, alert, no apparent distress Head: Normocephalic, atraumatic ENT: Icterus, PERRLA, EOMI, no pharyngeal exudate, mucous membranes moist Neuro: AAO x 3, speech clear and appropriate, strength intact bilaterally 5/5, sensation intact and equal all extremities and dermatomes, no pronator drift Chest: equal rise and fall of the chest, no accessory muscle use, no heaves or thrills, Clear to auscultation, on room air, Cardiac: Regular rate and rhythm, telemetry reviewed, skin warm dry, cap refill <3 seconds, peripheral pulses +2 no JVD, no murmur, no edema GI: NABS x 4 quadrants, soft, tender to palpation RUQ and epigastrium, no rebound, guarding or tenderness : Spontaneously voiding, no pain, no CVA tenderness, Extremities: Normal inspection, no peripheral edema or erythema, calfs nontender to palpation Psych: Normal mood and affect Skin: jaundice, no rash or erythema Results & Data Results & Data ([facility]) Vital Signs (Past 12 Hours) Vital Signs Temp Pulse Pulse Resp BP BP Pulse Ox 01/29/21 17:31 175/60 H 95 01/29/21 17:00 100 H 36 H 93 01/29/21 16:30 102 H 21 94 01/29/21 16:00 97 H 32 H 96 01/29/21 15:30 95 H 20 96 01/29/21 15:00 94 H 12 98 01/29/21 14:33 94 H 24 74 L 01/29/21 14:30 93 H 16 175/60 H 97 01/29/21 12:32 37.1 C 88 20 159/84 H 97 Laboratory Results Abnormal lab results 01/29/21 01/29/21 01/29/21 Range/Units 13:20 13:20 13:20 RBC 4.09 L (4.2-5.4) M/uL Neut # (Auto) 7.36 H (1.4-6.5) K/uL Lymph # (Auto) 0.28 L (1.2-3.4) K/uL ESR (0-30) mm/hr Sodium 135 L (136-145) mmol/L Potassium 3.1 L (3.5-5.1) mmol/L Glucose 123 H (70-99) mg/dl Total Bilirubin 6.9 H (0.2-1) mg/dl Direct Bilirubin 5.6 H (0-0.2) mg/dl AST 324 H (15-37) U/L ALT 530 H (12-78) U/L Alkaline Phosphatase 371 H (45-117) U/L Globulin 4.1 H (2.5-4.0) gm/dl Procalcitonin (0-0.5) ng/ml Urine Protein Trace H (Negative) Urine Nitrite Positive A (Negative) Urine Bilirubin 3+ H (Negative) Urine Urobilinogen Positive H (Negative) Ur Leukocyte Esterase 1+ H (Negative) Urine WBC (Auto) 5-10 H (0-5) /hpf Urine RBC (Auto) 5-10 H (0-4) /hpf U Hyaline Cast (Auto) 5-10 H (0-5) /lpf U Epithel Cells (Auto) 20-30 H (0-5) /lpf 01/29/21 01/29/21 Range/Units 13:20 13:20 RBC (4.2-5.4) M/uL Neut # (Auto) (1.4-6.5) K/uL Lymph # (Auto) (1.2-3.4) K/uL ESR 33 H (0-30) mm/hr Sodium (136-145) mmol/L Potassium (3.5-5.1) mmol/L Glucose (70-99) mg/dl Total Bilirubin (0.2-1) mg/dl Direct Bilirubin (0-0.2) mg/dl AST (15-37) U/L ALT (12-78) U/L Alkaline Phosphatase (45-117) U/L Globulin (2.5-4.0) gm/dl Procalcitonin 0.70 H (0-0.5) ng/ml Urine Protein (Negative) Urine Nitrite (Negative) Urine Bilirubin (Negative) Urine Urobilinogen (Negative) Ur Leukocyte Esterase (Negative) Urine WBC (Auto) (0-5) /hpf Urine RBC (Auto) (0-4) /hpf U Hyaline Cast (Auto) (0-5) /lpf U Epithel Cells (Auto) (0-5) /lpf Diagnostic Findings Abdomen/Pelvis CT 01/29/21 14:31 CT OF THE ABDOMEN AND PELVIS WITH CONTRAST CLINICAL HISTORY: Upper abdomen pain. History of Waldenstrom's macroglobulinemia. COMPARISON STUDY: CT of the abdomen and pelvis December 24, 2020. TECHNIQUE: Following IV administration of 119 mL of Optiray, axial images of the abdomen and pelvis were obtained from the lung bases to the proximal femurs. Images were reviewed in the axial, sagittal, and coronal planes. IV contrast was administered without complication. Automated exposure control was utilized for the study. A dose lowering technique was utilized adhering to the principles of ALARA. FINDINGS: The chest CT will reported separately. No pneumatosis, free air or portal venous gas is present. The previously described submucosal lesion within the gastric cardia is better depicted on prior exam with oral contrast. A left hepatic lobe cyst measures 4.1 cm. Intermediate attenuation 2.7 cm right hepatic lobe lesion on image 146 of [address] of December 24, 2020. Low- attenuation lobulated lesion inferior to the left adrenal gland is unchanged. This favors a lymphangioma. The adrenal glands and pancreas are unremarkable. There is no pancreatic ductal dilatation. There is no peripancreatic infiltration. Biliary ductal dilatation is developed since prior exam. Common bile duct measures 1.2 cm in caliber. There may be mild wall enhancement of the common hepatic and common bile duct. In addition, there is suspected infiltration/trace fluid within the cortez hepatis. Splenomegaly is similar to prior exam. Several hypodense splenic lesions measuring up to 2.9 cm are similar to prior CT. These have decreased in size since earlier CT of November 25, 2019. There is no hydronephrosis. The kidneys are unremarkable. Sigmoid diverticulosis is noted without evidence for acute diverticulitis. Caliber and wall thickness of small and large bowel are normal. The appendix is normal. Calcified fibroids are incidentally noted. There is no acute fracture or suspicious lesion within the visualized skeletal structures. IMPRESSION: 1. Interval development of biliary ductal dilatation with mild wall enhancement of the common hepatic and common bile ducts and trace fluid/infiltration within the cortez hepatis. The findings are nonspecific and cholangitis is within the differential. If abnormal liver function tests, GI consultation is recommended. 2. No significant change in splenomegaly and several hypodense splenic lesions since CT of December 24, 2020. Findings remain improved when compared to initial CT of December 03, 2019. 3. No change in indeterminate 2.7 cm right hepatic lobe lesion. 4. Redemonstration of a suspected submucosal lesion within the gastric cardia. ACT 112: Negative or not required by law. Electronically signed by: Ron Armas M.D. 01/29/2021 5:24 PM Chest X-Ray 01/29/21 14:32 XR chest 1V portable CLINICAL HISTORY: Fever COMPARISON STUDY: Chest CT December 24, 2020. FINDINGS: Lung volumes are normal. Lungs are clear. There is no pneumothorax or pleural effusion. Mild cardiomegaly is unchanged. Mediastinal contours are normal. There is no evidence for pulmonary edema. IMPRESSION: No acute cardiopulmonary findings. ACT 112: Negative or not required by law. Electronically signed by: Ron Armas M.D. 01/29/2021 3:57 PM Chest CTA 01/29/21 15:03 CT ANGIOGRAPHY OF THE CHEST, PULMONARY EMBOLUS PROTOCOL CLINICAL HISTORY: Atypical chest pain. Upper abdominal pain. History of Waldenstrom's macroglobulinemia. Evaluate for pulmonary embolus. COMPARISON STUDY: Chest CT December 24, 2020. Chest radiograph performed earlier today TECHNIQUE: Following IV administration of 119 mL of Optiray, helical axial images of the chest were obtained utilizing the pulmonary embolus protocol. Maximal intensity projections and sagittal and coronal reformats were viewed on an independent 3D workstation. IV contrast was administered without complication. Automated exposure control was utilized for the study. A dose lowering technique was utilized adhering to the principles of ALARA. CT DOSE: 558.82 mGy.cm FINDINGS: No pulmonary emboli are identified. There is no thoracic aortic dissection. Mild cardiomegaly is noted. There is no pericardial effusion. No enlarged axillary, mediastinal or hilar lymph nodes are present. No pneumothorax or pleural effusion is noted. Linear and groundglass opacities reflect atelectasis. No acute rib or thoracic spine fractures identified. Abdomen and pelvis will be reported separately. Splenomegaly is better depicted on that exam. There is a left hepatic lobe cyst. IMPRESSION: 1. No pulmonary emboli identified. 2. No acute process within the chest. ACT 112: Negative or not required by law. Electronically signed by: Ron Armas M.D. 01/29/2021 5:05 PM Medications Administered Potassium Chloride (K Jaycob / Wtr) 10 meq in 100 mls @ 100 mls/hr IV Q1H ANDREE Stop: 01/29/21 20:44 Last Admin: 01/29/21 19:26 Dose: 100 mls/hr Documented by: [id number] Discontinued Medications Sodium Chloride (Nss 1000ml) 1,000 mls @ 999 mls/hr IV .Q1H1M STA Stop: 01/29/21 15:31 Last Infusion: 01/29/21 16:10 Dose: 0 mls/hr Documented by: [id number] Admin: 01/29/21 15:07 Dose: 999 mls/hr Documented by: [id number] Ceftriaxone Sodium (Rocephin) 1,000 mg in 50 mls @ 100 mls/hr IV NOW STA Stop: 01/29/21 15:51 Last Infusion: 01/29/21 17:10 Dose: 0 mls/hr Documented by: [id number] Admin: 01/29/21 16:31 Dose: 100 mls/hr Documented by: [id number] Ertapenem 1,000 mg/ Sodium (Chloride) 60 mls @ 100 mls/hr IV ONCE ONE Stop: 01/29/21 19:35 Last Admin: 01/29/21 19:26 Dose: 100 mls/hr Documented by: [id number] Ioversol (Optiray 320 125ml) 119 ml IV ONCE ONE Stop: 01/29/21 16:36 Last Admin: 01/29/21 16:35 Dose: 119 ml Documented by: [id number] ECG Additional Comments: Normal sinus rhythm Left bundle branch block Abnormal ECG No previous ECGs available Code Status & VTE Plan Code Status CODE: FULL VTE: SCDS, ambulation- hold on chemoprophylaxis for now VTE Prophylaxis Plan VTE Prophylaxis will be ordered: Yes Supervising Physician Co-Signing Physician Notes I personally saw and examined the patient. I verified all garcia points and agree with ZACHARY Gonzalez with the following exceptions and/or additions: 70 year old female with fever, RUQ abdominal pain and jaundice. Prior cholecystectomy. O/E Non septic appearing, clearly jaundiced skin, sclera icteric, HS RRR, no murmurs, Chest CTAB. Abdomen SNT, BS normal. A/P Acute cholangitis - despite resolution of abdominal pain and no choledocholithiasis on MRCP (statrad read) will likely need ERCP given elevated LFTs. Metronidazole IV not available and allergic to penicillins therefore started on ertapenem. PG Care Time/CCT Total # of Minutes Spent Total Time Spent with Patient: Total time spent is greater than 50% in coordination of care (as documented) at patient's floor/unit and/or counseling patient: Coding Level of Care Code 72248 Initial Inpt Care Lvl 3 Diagnoses Jaundice, obstructive, intrahepatic K83.1 Vomiting R11.2 Nausea presence: with nausea Vomiting Intractability: non-intractable Vomiting type: unspecified Common bile duct dilatation K83.8 B-cell lymphoma C85.10 Gastritis K29.70 Hypercholesterolemia E78.00 Vitamin D deficiency E55.9 (1) Vomiting Nausea presence: with nausea Vomiting Intractability: non-intractable Vomiting type: unspecified Qualified Code(s): R11.2 - Nausea with vomiting, unspecified
[2021-01-29] MEDS: POTASSIUM CHLORIDE / WTR 10 MEQ/100 ML PLCT IV SCH (19:26)
[2021-01-29] MEDS ORDERED: ONDANSETRON INJ 2 MG/ML 2 ML VIAL ONE (20:45)
[2021-01-29] MEDS ORDERED: cefTRIAXone SODIUM 2,000 MG in DEXTROSE 5% 50 ML IV SCH (21:57)
[2021-01-29] MEDS ORDERED: ONDANSETRON INJ 2 MG/ML 2 ML VIAL IV PRN (21:57)
[2021-01-29] MEDS: LACTATED RINGER'S 1,000 ML IV SCH (22:32)
[2021-01-29] MEDS: ACETAMINOPHEN 325 MG TAB PO PRN (22:32)
[2021-01-30] MEDS: ACETAMINOPHEN 325 MG TAB PO PRN (06:22)
--- NOTE | 2021-01-30 07:38 | Electrocardiogram Report ---
Test Reason : Blood Pressure : / mmHG Vent. Rate : 086 BPM Atrial Rate : 086 BPM P-R Int : 166 ms QRS Dur : 130 ms QT Int : 404 ms P-R-T Axes : 060 041 050 degrees QTc Int : 483 ms Normal sinus rhythm Left bundle branch block Abnormal ECG No previous ECGs available Confirmed by Raghavendra Gu ([id number]) on 01/30/2021 7:38:08 AM Referred By: REFERRED SELF Confirmed By:Bolivar Gu
--- NOTE | 2021-01-30 08:24 | Magnetic Resonance Report ---
MR MRCP HISTORY: 70 years-old Female vomiting, jaundice acute right upper quadrant abdominal pain with nause a, vomiting and fever. COMPARISON: CT abdomen and pelvis 01/29/2021, MRI abdomen 12/19/2019 TECHNIQUE: MRCP was obtained without the use of IV contrast utilizing institutional protocol. FINDINGS: The imaged lower chest is unremarkable. Cysts of the liver and right kidney. Splenomegaly with hypode nse splenic lesions redemonstrated measuring up to approximately 2.9 cm. Indeterminate 2.7 cm lesion of the inferior subcapsular right hepatic lobe with capsular retraction is unchanged. Aorta and IVC a re unremarkable. There is no adenopathy. Mild generalized pancreatic atrophy. Probable lymphangioma o f the left adrenal gland redemonstrated measuring 2.5 cm. Cholecystectomy. No choledocholithiasis. Fu siform dilation of the common bile duct may represent a type I choledochal cyst. Proximal to this are a of dilation, the common bile duct measures up to 7 mm. Wall thickening of the common hepatic and co mmon bile ducts with trace adjacent infiltration is better seen on the comparison CT study. No obstru cting biliary lesion identified. Probable lesion of the gastric cardia is again noted. IMPRESSION: 1. Cholecystectomy. Mild intrahepatic and extrahepatic biliary ductal dilation redemonstrated. The bi liary wall thickening with cortez hepatis infiltration is better appreciated on the CT study of same d ay. Again, these findings should be correlated with laboratory analysis and clinical presentation to exclude cholangitis. 2. No choledocholithiasis. 3. Splenomegaly with several hypodense splenic lesions redemonstrated. 4. Unchanged indeterminate 2.7 cm lesion of the inferior right hepatic lobe. 5. Probable lesion of the gastric cardiac is noted. ACT 112: Negative or not required by law. The above report was generated using voice recognition software. It may contain grammatical, syntax o r spelling errors. Electronically signed by: Vik Barron M.D. 01/30/2021 8:23 AM
[2021-01-30 08:32] LABS: Basophils # (auto) 0.01 K/uL (0-0.2); Basophils % (auto) 0.3 %; Eosinophils # (auto) 0.09 K/uL (0-0.5); Eosinophils % (auto) 2.4 %; Hematocrit (blood only) 30.3 % (37-47); Hemoglobin 10.4 g/dL (12.0-16.0); Immature Granulocytes # (auto) 0.01 K/uL (0.00-0.02); Immature Granulocytes % (auto) 0.3 %; Lymphocytes % (auto) 5.2 %; Mean Corpuscular Hemoglobin 31.2 pg (25-34); Mean Corpuscular Hgb Conc 34.3 g/dL (32-36); Mean Platelet Volume 8.6 fL (7.4-10.4); Monocytes # (auto) 0.29 K/uL (0.11-0.59); Monocytes % (auto) 7.6 %; Neutrophils # (auto) 3.21 K/uL (1.4-6.5); Neutrophils % (auto) 84.2 %; Platelet Count 118 K/uL (130-400); RDW Coefficient of Variation 13.4 % (11.5-14.5); RDW Standard Deviation 45.1 fL (36.4-46.3); Red Blood Count 3.33 M/uL (4.2-5.4); White Blood Count 3.81 K/uL (4.8-10.8)
--- NOTE | 2021-01-30 08:38 | Anesthesiology Consultation ---
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 History Surgery Operation Date: 01/30/21 09:00 Proposed Procedures p Endoscopic Retrograde Cholangiopancreatogram - Sayda Sommers DO Height/Weight Height: 5 ft 4 in Weight: 60.073 kg Allergies Allergy/AdvReac Type Severity Reaction Status Date / Time Penicillins Allergy Intermediate HIVES A Verified 01/29/21 15:41 CHILD Sulfa (Sulfonamide Allergy Intermediate HIVES A Verified 01/29/21 15:41 Antibiotics) CHILD rituximab [From Rituxan] Allergy pain, Verified 01/29/21 15:41 nausea, swollen mouth and uvula levofloxacin AdvReac Mild LEG PAIN Verified 01/29/21 15:41 Medications Home Medications Medication Instructions Recorded Confirmed Last Taken cholecalciferol (vitamin D3) 50 2,000 unit PO QAM 02/03/18 01/29/21 12/19/19 mcg (2,000 unit) tablet (Vitamin D3) potassium 99 mg tablet 99 mg PO QAM 02/03/18 01/29/21 12/19/19 vitamin B complex 1 tab PO QAM 02/03/18 01/29/21 12/19/19 calcium carb-vit D3-minerals 600 1 tab PO QAM 12/17/19 01/29/21 12/19/19 mg calcium-400 unit tablet magnesium oxide 400 mg PO QAM 12/17/19 01/29/21 12/19/19 pantoprazole 40 mg tablet,delayed 40 mg PO QAM #30 tab 12/26/19 01/29/21 Unknown release biotin 400 mcg tablet 400 mcg PO DAILY tab 09/24/20 01/29/21 Unknown acyclovir 400 mg tablet 400 mg PO BID 01/29/21 01/29/21 Unknown zolmitriptan 2.5 mg tablet (Zomig) 0 mg PO UD PRN 01/29/21 01/29/21 Unknown Active Medications Generic Name Dose Route Start Last Admin Trade Name Freq PRN Reason Stop Dose Admin Acetaminophen 650 mg 01/29/21 21:57 01/30/21 06:22 Acetaminophen 325 Mg Tab PO 02/28/21 21:56 650 mg Q4H PRN Administration Pain or Fever Acyclovir 400 mg 01/29/21 21:57 01/30/21 00:00 Acyclovir 400 Mg Tab PO 02/28/21 21:56 400 mg BID ANDREE Administration Lactated Ringer's 1,000 mls @ 90 mls/hr 01/29/21 21:57 01/30/21 06:37 Lr IV 02/28/21 21:56 90 mls/hr .[id number] ANDREE Infusion Past Medical History Medical History Anemia long time ago Common bile duct calculus with removal Hearing deficit Migraine Non-Hodgkin lymphoma october 2019 diagnosed Osteoarthritis PVC's (premature ventricular contractions) Trigeminal neuralgia of left side of face Past Family History Family History Father Family hx colonic polyps Myocardial infarction Mother Family hx colonic polyps Grandmother (Paternal) Family hx of colon cancer Colorectal cancer Uncle Family hx of colon cancer paternal Colorectal cancer Sister Breast cancer Lung cancer Other Allergies Cancer Heart disease Lung disease No family history of adverse response to anesthesia Denies family history of Tuberculosis Ovarian cancer Prostate cancer Diabetes Emphysema, unspecified Asthma Past Surgical History Surgical History History of bone marrow biopsy History of cholecystectomy History of colonoscopy with polypectomy History of dilatation and curettage History of esophagogastroduodenoscopy (EGD) History of left cataract extraction History of right breast biopsy with cyst removal---benign History of tonsillectomy History of tooth extraction Social History Smoking Status: Never smoker Do You Dip or Chew Tobacco: No Hx Alcohol Use: No Alcohol type: beer, wine and hard liquor alcohol intake frequency: a few times a month Hx Substance Use: No substance use type: does not use Physical Exam Vital Signs Last Vital Signs Temp 98.4 F 01/30/21 08:30 Pulse 89 01/30/21 08:30 Resp 16 01/30/21 08:30 BP 110/62 01/30/21 08:30 Pulse Ox 96 01/30/21 08:30 Testing Laboratory Results 01/30/21 08:11 PT 10.5 Seconds (9.0-12.0) 01/29/21 13:20 INR 1.0 (0.9-1.1) 01/29/21 13:20 Urine Color Dark Yellow 01/29/21 13:20 Urine Appearance Clear (Clear) 01/29/21 13:20 Urine pH 5.5 (4.5-7.5) 01/29/21 13:20 Ur Specific [place] 1.020 (1.000-1.030) 01/29/21 13:20 Urine Protein Trace (Negative) H 01/29/21 13:20 Urine Glucose (UA) Negative (Negative) 01/29/21 13:20 Urine Ketones Negative (Negative) 01/29/21 13:20 Urine Nitrite Positive (Negative) A 01/29/21 13:20 Ur Leukocyte Esterase 1+ (Negative) H 01/29/21 13:20 Urine WBC (Auto) 5-10 /hpf (0-5) H 01/29/21 13:20 Urine RBC (Auto) 5-10 /hpf (0-4) H 01/29/21 13:20 U Hyaline Cast (Auto) 5-10 /lpf (0-5) H 01/29/21 13:20 U Epithel Cells (Auto) 20-30 /lpf (0-5) H 01/29/21 13:20 Urine Bacteria (Auto) Negative (Negative) 01/29/21 13:20 Electrocardiogram Date: 01/29/21 Normal sinus rhythm, rate 86 bpm Left bundle branch block Abnormal ECG No previous ECGs available Confirmed by Raghavendra Gu ([id number]) on 01/30/2021 7:38:08 AM Chest X-Ray Date: 01/29/21 Findings: + NAD
[2021-01-30 08:39] LABS: Prothrombin Time 10.6 Seconds (9.0-12.0)
[2021-01-30] MEDS ORDERED: ONDANSETRON INJ 2 MG/ML 2 ML VIAL IV PRN (08:39)
[2021-01-30] MEDS ORDERED: ePHEDrine sulfate 50 MG/ML AMP IV PRN (08:39)
[2021-01-30] MEDS ORDERED: ATROPINE SULFATE 0.1 MG/ML 10ML SYR IV PRN (08:39)
[2021-01-30] MEDS ORDERED: fentaNYL citrate 100 MCG/2 ML VIAL IV PRN (08:39)
[2021-01-30] MEDS ORDERED: MEROPENEM CONSULT ACTIVE PRN (08:42)
--- NOTE | 2021-01-30 09:04 | Gastrointestinal Consultation ---
Date of Consultation January 30, 2021 Assessment & Plan (1) Jaundice, obstructive, intrahepatic: (2) LFT elevation: Pt is a 70 y/o female who presented w fever, abd pain, n/v, jaundice, noted to have elevated LFTs and abd imaging studies indicating biliary ductal dilation ? cholangitis. No choledocholithiasis noted. She is s/p cholecystectomy - Continue IV antibx - NPO - ERCP with Dr. Sayda Sommers in OR today - Further recs after ERCP completed History of Present Illness Reason for Consultation: Jaundice, elevated Tbili, vomiting Requesting Physician: Dr. Elmo Harp Attending Physician: Dr. Sayda Sommers History of Present Illness Pt is a 70 y/o female w hx of Bcell lymphoma, gastric leiomyoma , s/p cholecystectomy who presented yesterday w c/o abd pain, R lateral chest wall pain after a fall, and jaundice. She also has associated diarrhea few days ago and fever of 101.5F, vomiting. On eval, she was noted to have elevated LFTs: Tbili 6, AST 300s, ALT 500s, alk phos 300s. Abd imaging w CT and MRCP showed biliary ductal dilation, and possible cholangitis but no choledocholithiasis. She was started on IV antibx, and planned for ERCP today. She denies fever, chills overnight, abd pain improved, no vomiting. Had been NPO since midnight Allergies Allergy/AdvReac Type Severity Reaction Status Date / Time Penicillins Allergy Intermediate HIVES A Verified 01/29/21 15:41 CHILD Sulfa (Sulfonamide Allergy Intermediate HIVES A Verified 01/29/21 15:41 Antibiotics) CHILD rituximab [From Rituxan] Allergy pain, Verified 01/29/21 15:41 nausea, swollen mouth and uvula levofloxacin AdvReac Mild LEG PAIN Verified 01/29/21 15:41 Home Medications Medication Instructions Recorded Confirmed Type cholecalciferol (vitamin D3) 50 2,000 unit PO QAM 02/03/18 01/29/21 History mcg (2,000 unit) tablet (Vitamin D3) potassium 99 mg tablet 99 mg PO QAM 02/03/18 01/29/21 History vitamin B complex 1 tab PO QAM 02/03/18 01/29/21 History calcium carb-vit D3-minerals 600 1 tab PO QAM 12/17/19 01/29/21 History mg calcium-400 unit tablet magnesium oxide 400 mg PO QAM 12/17/19 01/29/21 History pantoprazole 40 mg tablet,delayed 40 mg PO QAM #30 tab 12/26/19 01/29/21 Rx release biotin 400 mcg tablet 400 mcg PO DAILY tab 09/24/20 01/29/21 History acyclovir 400 mg tablet 400 mg PO BID 01/29/21 01/29/21 History zolmitriptan 2.5 mg tablet (Zomig) 0 mg PO UD PRN 01/29/21 01/29/21 History Patient History Medical History Anemia long time ago Common bile duct calculus with removal Hearing deficit Migraine Non-Hodgkin lymphoma october 2019 diagnosed Osteoarthritis PVC's (premature ventricular contractions) Trigeminal neuralgia of left side of face Surgical History History of bone marrow biopsy History of cholecystectomy History of colonoscopy with polypectomy History of dilatation and curettage History of esophagogastroduodenoscopy (EGD) History of left cataract extraction History of right breast biopsy with cyst removal---benign History of tonsillectomy History of tooth extraction Family History Father Family hx colonic polyps Myocardial infarction Mother Family hx colonic polyps Grandmother (Paternal) Family hx of colon cancer Colorectal cancer Uncle Family hx of colon cancer paternal Colorectal cancer Sister Breast cancer Lung cancer Other Allergies Cancer Heart disease Lung disease No family history of adverse response to anesthesia Denies family history of Tuberculosis Ovarian cancer Prostate cancer Diabetes Emphysema, unspecified Asthma Social History Smoking Status: Never smoker Second Hand Exposure: No; Do You Dip or Chew Tobacco: No; Tobacco Cessation Education Requested by Patient: No Hx Alcohol Use: No Hx Substance Use: No Preferred Language: Hebrew Communication Ability: Effective Visual Impairment: No Limitations Hearing Ability: Use of Hearing Aid [employer] Manager Required: No Beliefs That Will Affect Care: None marital status: Current Living Situation: Spouse Current Living Situation Comment: current occupational status: retired Other Information That Helps Us Care for You: No Feels Safe at Home: Yes Safety Concerns: Feels Safe At This Time Childhood Exposure to Second-Hand Smoke: No Dental Care, Regularly: Yes Physical Activity Frequency: Daily Seatbelt Use: always Sunscreen Use: Yes Assistive Devices: None Review of Systems Review of Systems: All systems reviewed & are unremarkable except as noted in HPI & below Physical Exam Constitutional: WD/WN, vitals as above well groomed, cooperative and comfortable Eyes: PERRLA, EOMs intact, icteric sclera ENMT: external ear and nose normal, oropharynx normal Respiratory: normal respiratory effort, lungs clear to auscultation Cardiovascular: RRR, no murmur, no edema Gastrointestinal (Abdomen): normal bowel sounds, soft, nontender, no hepatosplenomegaly Skin: no rashes, warm and dry + jaundice Psychiatric: A+Ox3, euthymic affect Lymphatic: no lymphedema Results & Data ([facility]) Vital Signs (Past 12 Hours) Vital Signs Temp Pulse Resp BP BP Pulse Ox 01/30/21 08:30 36.9 C 89 16 110/62 96 01/30/21 06:17 36.3 C L 01/29/21 21:42 37.9 C H 95 H 18 154/81 H 93 01/29/21 21:20 37.4 C 94 H 137/67 96
[2021-01-30] MEDS ORDERED: INDOMETHACIN 50 MG SUPP PR ONE ×2 (09:05→09:27)
[2021-01-30 09:17] LABS: Albumin Level 2.8 gm/dl (3.4-5.0); BUN Creatinine Ratio 15.3 (10-20); Bilirubin Direct 4.4 mg/dl (0-0.2); Bilirubin,Total 5.3 mg/dl (0.2-1); Creatinine Clr Calc Pharmacy 74.1 ml/min; Est GFR (African American) 106.5 ml/min; Est GFR (Non-African American) 91.9 ml/min; Magnesium 2.4 mg/dl (1.8-2.4); Potassium 3.3 mmol/L (3.5-5.1); Total Protein 5.9 gm/dl (6.4-8.2)
[2021-01-30] MEDS ORDERED: LIDOCAINE 2% 2 ML VIAL/AMP(20MG/ML) INFIL ONE (09:19)
[2021-01-30] MEDS ORDERED: PROPOFOL IV EMULSION 10 MG/ML 20 ML VIAL IV ONE (09:19)
[2021-01-30] MEDS ORDERED: MIDAZOLAM HCL 1 MG/ML 2ML VIAL ONE (09:19)
[2021-01-30] MEDS ORDERED: fentaNYL citrate 100 MCG/2 ML VIAL ONE (09:19)
[2021-01-30] MEDS ORDERED: DEXAMETHASONE SOD INJ 4 MG/ML VIAL ONE (09:19)
[2021-01-30] MEDS ORDERED: ONDANSETRON INJ 2 MG/ML 2 ML VIAL ONE (09:19)
--- NOTE | 2021-01-30 09:24 | History & Physical Bridge Note ---
Date of Service January 30, 2021 History & Physical Bridge Note I have examined the patient, reviewed the History & Physical and in the interval since the performance of the History & Physical I have noted the following changes of clinical significance: no changes noted. ERCP planned today for choledocholithiasis. We have discussed the risks of ERCP to include bleeding, infection, perforation, pain, pancreatitis and need for follow-up studies.
[2021-01-30] MEDS ORDERED: MEROPENEM 500 MG in SYRINGE 0 ML IV SCH (10:00)
[2021-01-30] MEDS ORDERED: LARYING-O-JET KIT (LTA) ONE (10:21)
--- NOTE | 2021-01-30 10:47 | GI REPORT ---
Patient Name: Lindsay Mobley Procedure Date: 01/30/2021 9:34 AM Date of : 1950 Admit Type: Inpatient Age: 70 Gender: Female Attending MD: Sayda Sommers DO Procedure: ERCP Providers: Sayda Sommers DO Referring MD: Elmo Harp Md, Grabiel Gagnon Case, DO Indications: Abdominal pain of suspected biliary origin, Suspected ascending cholangitis, Elevated liver enzymes Medicines: Monitored Anesthesia Care Complications: No immediate complications. Estimated blood loss: Minimal. Estimated Blood Loss: Estimated blood loss was minimal. Procedure: Pre-Anesthesia Assessment: - Prior to the procedure, a History and Physical was performed, and patient medications, allergies and sensitivities were reviewed. The patient's tolerance of previous anesthesia was reviewed. - The risks and benefits of the procedure and the sedation options and risks were discussed with the patient. All questions were answered and informed consent was obtained. - Patient identification and proposed procedure were verified prior to the procedure by the physician, the nurse and the manager infrastructure. The procedure was verified in the procedure room. - Pre-procedure physical examination revealed no contraindications to sedation. - ASA Grade Assessment: III - A patient with severe systemic disease. - After reviewing the risks and benefits, the patient was deemed in satisfactory condition to undergo the procedure. - The anesthesia plan was to use general anesthesia. - Immediately prior to administration of medications, the patient was re-assessed for adequacy to receive sedatives. - The heart rate, respiratory rate, oxygen saturations, blood pressure, adequacy of pulmonary ventilation, and response to care were monitored throughout the procedure. - The physical status of the patient was re-assessed after the procedure. After obtaining informed consent, the scope was passed under direct vision. Throughout the procedure, the patient's blood pressure, pulse, and oxygen saturations were monitored continuously. The Scope was introduced through the mouth, and advanced to the duodenum and used to inject contrast into the bile duct. The ERCP was accomplished without difficulty. The patient tolerated the procedure well. Findings: A quality coordinator film of the abdomen was obtained. Surgical clips, consistent with a previous cholecystectomy, were seen in the area of the right upper quadrant of the abdomen. The esophagus was successfully intubated under direct vision without detailed examination of the pharynx, larynx, and associated structures, and upper GI tract. The upper GI tract was grossly normal. The major papilla was adjacent to a diverticulum. A biliary sphincterotomy had been performed. The sphincterotomy appeared stenosed or narrowed. The bile duct was deeply cannulated with the short-nosed traction sphincterotome and guidewire. Contrast was injected. I personally interpreted the bile duct images. Contrast extended to the hepatic ducts. The main bile duct was moderately dilated and diffusely dilated. The largest diameter was 10-12 mm. The lower third of the main bile duct contained filling defect(s) thought to be sludge. The cystic duct was mildly dilated and contained a filling defect. The biliary sphincterotomy was extended with a monofilament Fusion OMNI sphincterotome using ERBE electrocautery. There was no post-sphincterotomy bleeding. To discover objects, the biliary tree was swept with a 15 mm balloon starting at the bifurcation. Sludge was swept from the duct. Two 7 Fr by 7 and one 4 cm biliary stents with a full external pigtail and a full internal pigtail were placed 7 and 4 cm into the common bile duct. Bile flowed through the stents. The stents were in good position. Indomethacin 100 mg was given via suppository to decrease the risk of post-ERCP pancreatitis (PEP). The endoscope was withdrawn from the patient. The total fluoroscopy exposure time was 54 seconds. Impression: - The major papilla was adjacent to a diverticulum. - Prior biliary sphincterotomy appeared stenosed or narrowed, extension was peformed today. - The cystic duct was mildly dilated. - The biliary tree was swept and sludge was found. - Two biliary stents were placed into the common bile duct. - Indomethacin given to decrease risk of post-ERCP pancreatitis. Recommendation: - [facility] care. - Clear liquid diet today. - Use broad spectrum antibiotics for 10 days. - Use MONICO Forte (ursodiol) 500 mg PO BID. - Repeat ERCP in 6 weeks to remove stent. Sayda Sommers D.O. Sayda Sommers, 01/30/2021 10:46:37 AM This report has been signed electronically. Note Initiated On: 01/30/2021 9:34 AM Number of Addenda: 0 I attest to the content of the Intraoperative Record and orders documented therein, exceptions below {[id number]}
--- NOTE | 2021-01-30 10:51 | Post Operative Brief Note ---
Immediate Post Op Note v1 Date of Surgery January 30, 2021 Pre & Post Diagnosis Operation Date: 01/30/21 09:00 Pre-Op Diagnosis: Cholangitis Post-Op Diagnosis: Choledocholithiasis I identified the patient and participated in the time-out.: Yes Procedure Operation Date: 01/30/21 09:00 Actual Procedures p Endoscopic Retrograde Cholangiopancreatogram(Not Applicable) - Sayda Sommers DO Surgeon Sayda Sommers DO Teacher Dramatics none Estimated Blood Loss 0 Findings Consistent with Post-Op Diagnosis
--- NOTE | 2021-01-30 11:08 | Anesthesiology Progress Note ---
Date of Service January 30, 2021 Anesthesia Post Procedure Vital Signs Vital Signs: Temp Pulse Pulse Pulse Resp BP BP 01/30/21 11:00 77 18 01/30/21 10:50 77 18 01/30/21 10:44 97.0 F L 88 20 01/30/21 08:52 98.8 F 79 18 01/30/21 08:30 98.4 F 89 16 110/62 01/30/21 06:17 97.3 F L 01/29/21 21:42 100.2 F H 95 H 18 01/29/21 21:20 99.3 F 94 H 137/67 01/29/21 19:30 94 H 14 01/29/21 19:00 92 H 18 01/29/21 18:30 96 H 17 01/29/21 18:00 99 H 14 01/29/21 17:31 175/60 H 01/29/21 17:00 100 H 36 H 01/29/21 16:30 102 H 21 01/29/21 16:00 97 H 32 H 01/29/21 15:30 95 H 20 01/29/21 15:00 94 H 12 01/29/21 14:33 94 H 24 01/29/21 14:30 93 H 16 175/60 H 01/29/21 12:32 98.8 F 88 20 159/84 H BP Pulse Ox 01/30/21 11:00 140/89 99 01/30/21 10:50 138/64 99 01/30/21 10:44 136/75 99 01/30/21 08:52 132/76 98 01/30/21 08:30 96 01/30/21 06:17 01/29/21 21:42 154/81 H 93 01/29/21 21:20 96 01/29/21 19:30 94 01/29/21 19:00 96 01/29/21 18:30 95 01/29/21 18:00 96 01/29/21 17:31 95 01/29/21 17:00 93 01/29/21 16:30 94 01/29/21 16:00 96 01/29/21 15:30 96 01/29/21 15:00 98 01/29/21 14:33 74 L 01/29/21 14:30 97 01/29/21 12:32 97 Pain Intensity Head: Pain Intensity: 3 Transfer of Care Handoff Completed per policy Notes Mental Status: alert / awake / arousable and participated in evaluation Patient Amnestic to Procedure: Yes Nausea / Vomiting: adequately controlled Pain: adequately controlled Airway Patency, RR, SpO2: stable & adequate BP & HR: stable & adequate Hydration State: stable & adequate Anesthetic Complications: no major complications apparent and Pt Satisfied with anesthetic care
[2021-01-30] MEDS: LACTATED RINGER'S 1,000 ML IV SCH ×2 (11:22→21:31)
[2021-01-30] MEDS: PANTOprazole 40 MG TAB PO SCH (12:32)
[2021-01-30] MEDS: ACYCLOVIR 400 MG TAB PO SCH ×3 (12:32→19:37)
--- NOTE | 2021-01-30 12:42 | Fluoroscopy Report ---
[place] ERCP biliary ductal HISTORY: 70 years-old Female ERCP ADD ON IN OR acute vomiting with intrahepatic and extrahepatic naldo iary ductal dilation COMPARISON: MRCP and CT abdomen and pelvis 01/29/2021 TECHNIQUE: 33 spot fluoroscopic images of the right upper quadrant were obtained utilizing 55.5 secon ds fluoroscopy time FINDINGS: Endoscope is noted within the duodenum. Cannulation of the common bile duct with retrograde injection of contrast. Fusiform dilation of the common bile duct redemonstrated suggestive of a type I choledo chal cyst. Cholecystectomy. Mild intrahepatic and extrahepatic biliary ductal dilation redemonstrated . Subsequent images demonstrate balloon sweep of the common bile duct with apparent placement of 2 co mmon bile duct stents. The last images are limited secondary to motion artifact. IMPRESSION: Fluoroscopic assistance as above. ACT 112: Negative or not required by law. The above report was generated using voice recognition software. It may contain grammatical, syntax o r spelling errors. Electronically signed by: Vik Barron M.D. 01/30/2021 12:40 PM
[2021-01-30] MEDS: POTASSIUM CHLORIDE / WTR 10 MEQ/100 ML PLCT IV SCH ×3 (13:06→15:20)
--- NOTE | 2021-01-30 17:03 | Hospitalist Progress Note ---
Date of Service January 30, 2021 Assessment & Plan (1) Cholangitis: Plan: Patient presented with jaundice and hyperbilirubinemia along with abdominal pain, nausea and vomiting CT of the abdomen and pelvis showed bile duct dilatation with cholangitis MRCP confirmed cholangitis with bile duct dilatation White blood cell count was normal Procalcitonin was normal at 0.7 Patient is otherwise hemodynamically stable She is s/p ERCP that revealed stenosis of prior sphincterectomy with sludge. Patient subsequently had removal of sludge and 2 stents placed in the common bile duct Patient has since been started on Actigall Tolerated procedure well and has since been started on clear liquids GI on board. Appreciate recommendations Initially placed on Invanz empirically. This has poor anaerobic coverage. She is allergic to penicillin and quinolones. Transition to Merrem for now. Patient reports that she has had Augmentin in the past and has tolerated this. Would consider transitioning to Zosyn. We will reach out to pharmacy to see if in fact she has had Augmentin Blood cultures pending (2) Choledocholithiasis: Plan: S/p ERCP. See above (3) Abnormal LFTs: Plan: Related to common bile duct obstruction. See above We will continue to follow labs (4) Hypokalemia: Plan: Replace (5) Abnormal urinalysis: Plan: Urinalysis is grossly infected as it is nitrite and leukocyte esterase positive Currently on Merrem She does not seem to be significantly symptomatic. Likely asymptomatic bacteriuria We will await culture data (6) B-cell lymphoma: Plan: Chronic. S/p chemotherapy. Follows Dr. Rosa Admission and Anticipated Discharge Date Admission Date: January 29, 2021 Subjective Patient seen on daily rounds following ERCP 70-year-old white female who had a cholecystectomy in the past with history of B-cell lymphoma and benign gastric fundus mass who presented to the ED complaining of jaundice Reports developed abdominal pain, nausea and vomiting on Tuesday. Her family came in for Thanksgiving on Tuesday and noticed that she was jaundiced. She came into the ED where she was found to be afebrile and hemodynamically stable but have a total bilirubin of 6.9, AST 324, ALT of 530. CT scan of the abdomen and pelvis showed bile duct dilation with evidence of cholangitis. MRCP done confirming cholangitis. Subsequently had an ERCP performed today and noted to have stenosis of prior sphincterectomy (done in March for stone noted in the common bile duct). In addition, she had 2 stents placed in the common bile duct and removal of sludge. Has since been started on Actigall. Review of Systems Review of Systems: All systems reviewed and are unremarkable except as noted in HPI and below Denies fevers, chills, headache, nasal congestion, sore throat, cough, chest pain, shortness of breath, palpitations, orthopnea, PND, abdominal pain, nausea, vomiting, diarrhea, constipation, dysuria, hematuria, frequency, back pain, joint pain or swelling, easy bruising or bleeding, skin lesions or rashes. Denies pruritus Physical Exam Physical Exam: General: Resting comfortably in her hospital bed. She is somnolent but arousable. Does not appear ill or toxic. NAD. HEENT: Head is AT/NC sclera icterus noted Neck: No JVD. Negative hepatojugular reflex Cardiac: RRR without M/G/R Lungs: CTA without W/R/R Abdomen: Normoactive X4. Soft and nontender in all quadrants. Extremities: No peripheral clubbing cyanosis or edema Neuro: A&O X4 cranial nerves II through XII are grossly intact no focal neuro deficits Skin: No obvious jaundice Psych: Appropriate affect pleasant and cooperative Results & Data Results & Data ([facility]) Vital Signs (Past 12 Hours) Vital Signs Temp Pulse Pulse Resp BP BP Pulse Ox 01/30/21 16:01 36.8 C 71 16 139/83 97 01/30/21 13:31 36.5 C 82 16 148/77 H 95 01/30/21 12:10 74 16 147/71 H 96 01/30/21 11:50 74 18 126/76 96 01/30/21 11:15 36.8 C 75 16 136/82 95 01/30/21 11:00 77 18 140/89 99 01/30/21 10:50 77 18 138/64 99 01/30/21 10:44 36.1 C L 88 20 136/75 99 01/30/21 08:52 37.1 C 79 18 132/76 98 01/30/21 08:30 36.9 C 89 16 110/62 96 01/30/21 06:17 36.3 C L Laboratory Results 01/30/21 08:11 01/30/21 08:11 PG Care Time/CCT Total # of Minutes Spent Total Time Spent with Patient: Total time spent is greater than 50% in coordination of care (as documented) at patient's floor/unit and/or counseling patient: Coding Level of Care Code 82968 Subseq Hosp Care Lvl 2 Diagnoses Choledocholithiasis K80.50 Cholangitis K83.09 Abnormal LFTs R94.5 Hypokalemia E87.6 B-cell lymphoma C85.10 Abnormal urinalysis R82.90
[2021-01-30] MEDS: MEROPENEM 500 MG in SYRINGE 0 ML IV SCH (18:00)
[2021-01-30] MEDS ORDERED: ERTAPENEM SODIUM 1,000 MG in SODIUM CHLORIDE 0.9% 50 ML IV SCH (18:30)
[2021-01-30] MEDS: ursodioL 300 MG CAP PO SCH (19:37)
[2021-01-31] MEDS: MEROPENEM 500 MG in SYRINGE 0 ML IV SCH (02:38)
[2021-01-31] MEDS: LACTATED RINGER'S 1,000 ML IV SCH ×2 (07:30→19:42)
[2021-01-31 07:54] LABS: Eosinophils # (auto) 0.01 K/uL (0-0.5); Eosinophils % (auto) 0.3 %; Hematocrit (blood only) 30.6 % (37-47); Hemoglobin 10.6 g/dL (12.0-16.0); Immature Granulocytes # (auto) 0.01 K/uL (0.00-0.02); Immature Granulocytes % (auto) 0.3 %; Lymphocytes # (auto) 0.26 K/uL (1.2-3.4); Lymphocytes % (auto) 7.4 %; Mean Corpuscular Hemoglobin 31.7 pg (25-34); Mean Corpuscular Hgb Conc 34.6 g/dL (32-36); Mean Corpuscular Volume 91.6 fL (80-100); Mean Platelet Volume 9.2 fL (7.4-10.4); Monocytes # (auto) 0.37 K/uL (0.11-0.59); Monocytes % (auto) 10.6 %; Neutrophils # (auto) 2.84 K/uL (1.4-6.5); Neutrophils % (auto) 81.4 %; Platelet Count 135 K/uL (130-400); RDW Coefficient of Variation 13.1 % (11.5-14.5); RDW Standard Deviation 43.7 fL (36.4-46.3); Red Blood Count 3.34 M/uL (4.2-5.4); White Blood Count 3.49 K/uL (4.8-10.8)
[2021-01-31 08:04] LABS: Prothrombin Time 10.2 Seconds (9.0-12.0)
[2021-01-31 08:16] LABS: Albumin Level 2.9 gm/dl (3.4-5.0); BUN Creatinine Ratio 10.7 (10-20); Bilirubin Direct 2.4 mg/dl (0-0.2); Calcium 9.2 mg/dl (8.5-10.1); Creatinine Clr Calc Pharmacy 64.6 ml/min; Est GFR (African American) 101.7 ml/min; Est GFR (Non-African American) 87.8 ml/min; Magnesium 2.2 mg/dl (1.8-2.4); Potassium 3.3 mmol/L (3.5-5.1)
[2021-01-31 08:20] LABS: Bilirubin,Total 3.1 mg/dl (0.2-1); Total Protein 5.9 gm/dl (6.4-8.2)
[2021-01-31] MEDS: PANTOprazole 40 MG TAB PO SCH (08:38)
[2021-01-31] MEDS: ACYCLOVIR 400 MG TAB PO SCH ×2 (08:39→20:04)
[2021-01-31] MEDS: ursodioL 300 MG CAP PO SCH ×2 (08:39→20:05)
[2021-01-31] MEDS: CIPROFLOXACIN / D5W 400 MG/200 ML BAG IV SCH ×2 (10:03→20:05)
[2021-01-31] MEDS: metroNIDAZOLE 500 MG TAB PO SCH ×3 (10:03→20:06)
[2021-01-31] MEDS ORDERED: POTASSIUM CHLORIDE CRTAB 20 MEQ TABCR PO STA (12:02)
--- NOTE | 2021-01-31 15:52 | Hospitalist Progress Note ---
Date of Service January 31, 2021 Assessment & Plan (1) Cholangitis: Plan: Patient presented with jaundice and hyperbilirubinemia along with abdominal pain, nausea and vomiting CT of the abdomen and pelvis showed bile duct dilatation with cholangitis MRCP confirmed cholangitis with bile duct dilatation White blood cell count was normal Procalcitonin was normal at 0.7 Patient has been hemodynamically stable She is s/p ERCP that revealed stenosis of prior sphincterectomy with sludge. Patient subsequently had removal of sludge and 2 stents placed in the common bile duct Patient has since been started on Actigall Tolerated procedure well and has since been started/tolerating on clear liquids GI on board. Appreciate recommendations Initially placed on Invanz empirically. This has poor anaerobic coverage. She has a reported allergy to penicillin and quinolones. Transition to Merrem After lengthy discussion with patient and what antibiotics she has tolerated that in the past and calling her home pharmacy, she has been on both ciprofloxacin and Levaquin multiple times and has tolerated this without ill effects. We will transition to Cipro/Flagyl as she will need 10 days of antibiotics If tolerating, plan for likely discharge tomorrow (2) Choledocholithiasis: Plan: S/p ERCP. See above (3) LFT elevation: Plan: Presenting total bilirubin: 6.9, AST/ALT: 324/530 Obstructive in nature S/p ERCP with sludge removal and insertion of stents. LFTs downtrending (total bilirubin: 3.1, AST/ALT: 139/275) Tylenol ordered with admission. Hold this due to hyperbilirubinemia. (4) Hypokalemia: Plan: Further supplementation will be ordered (5) Abnormal urinalysis: Plan: Urine culture showing contaminated specimen Patient without dysuria, hematuria, frequency On Cipro which would cover UTI (6) B-cell lymphoma: Plan: Follows with Hem/ONC andraebrian - She has completed her CHEMO regime- is in follow up phase - Continue Acyclovir prophy 400mg PO daily Plan: Patient is showing favorable response Continue to monitor Plan for likely discharge tomorrow Attempted to update patient's . He did not answer Admission and Anticipated Discharge Date Admission Date: January 29, 2021 Subjective Patient seen on daily rounds today. Overall, feeling better. No significant abd pain. N/V. Tolerated clear liquids. No F/C. Review of Systems Review of Systems: All systems reviewed and are unremarkable except as noted in HPI and below Denies fevers, chills, headache, nasal congestion, sore throat, cough, chest pain, shortness of breath, palpitations, orthopnea, PND, abdominal pain, nausea, vomiting, diarrhea, constipation, dysuria, hematuria, frequency, back pain, joint pain or swelling, easy bruising or bleeding, skin lesions or rashes. Physical Exam Physical Exam: General: Resting comfortably in her hosptial bed. NAD. HEENT: no scleral icterus appreciated today. Head is AT/NC buccal mucosa is moist and pink Neck: No JVD. Negative hepatojugular reflex Cardiac: RRR without M/G/R Lungs: CTA without W/R/R Abdomen: Normoactive X4. Soft and nontender in all quadrants. Extremities: No peripheral clubbing cyanosis or edema Neuro: A&O X4 cranial nerves II through XII are grossly intact no focal neuro de ficits Skin: No obvious skin lesions or rashes Psych: Appropriate affect pleasant and cooperative Results & Data Results & Data ([facility]) Vital Signs (Past 12 Hours) Vital Signs Temp Pulse Resp BP Pulse Ox 01/31/21 07:23 36.6 C 65 16 151/83 H 98 Laboratory Results 01/31/21 07:34 01/31/21 07:34 PG Care Time/CCT Total # of Minutes Spent Total Time Spent with Patient: Total time spent is greater than 50% in coordination of care (as documented) at patient's floor/unit and/or counseling patient: Coding Level of Care Code 53144 Subseq Hosp Care Lvl 2 Diagnoses B-cell lymphoma C85.10 Cholangitis K83.09 LFT elevation R79.89 Hypokalemia E87.6 Abnormal urinalysis R82.90 Choledocholithiasis K80.50
[2021-02-01] MEDS: LACTATED RINGER'S 1,000 ML IV SCH (05:59)
[2021-02-01 07:55] LABS: Basophils # (auto) 0.01 K/uL (0-0.2); Basophils % (auto) 0.3 %; Eosinophils # (auto) 0.05 K/uL (0-0.5); Eosinophils % (auto) 1.4 %; Hematocrit (blood only) 31.1 % (37-47); Hemoglobin 10.7 g/dL (12.0-16.0); Immature Granulocytes # (auto) 0.01 K/uL (0.00-0.02); Immature Granulocytes % (auto) 0.3 %; Lymphocytes # (auto) 0.43 K/uL (1.2-3.4); Lymphocytes % (auto) 12.4 %; Mean Corpuscular Hemoglobin 31.8 pg (25-34); Mean Corpuscular Hgb Conc 34.4 g/dL (32-36); Mean Corpuscular Volume 92.3 fL (80-100); Mean Platelet Volume 9.3 fL (7.4-10.4); Monocytes % (auto) 8.6 %; Neutrophils # (auto) 2.67 K/uL (1.4-6.5); Platelet Count 144 K/uL (130-400); RDW Coefficient of Variation 13.1 % (11.5-14.5); RDW Standard Deviation 44.4 fL (36.4-46.3); Red Blood Count 3.37 M/uL (4.2-5.4); White Blood Count 3.47 K/uL (4.8-10.8)
[2021-02-01 08:16] LABS: Albumin Level 2.7 gm/dl (3.4-5.0); BUN Creatinine Ratio 11.9 (10-20); Calcium 9.1 mg/dl (8.5-10.1); Creatinine Clr Calc Pharmacy 79.3 ml/min; Est GFR (African American) 108.9 ml/min; Est GFR (Non-African American) 93.9 ml/min; Magnesium 1.9 mg/dl (1.8-2.4); Potassium 3.4 mmol/L (3.5-5.1)
[2021-02-01 08:31] LABS: Albumin Globulin Ratio 0.9 (0.9-2); Total Protein 5.7 gm/dl (6.4-8.2)
[2021-02-01] MEDS: ursodioL 300 MG CAP PO SCH (09:14)
[2021-02-01] MEDS: metroNIDAZOLE 500 MG TAB PO SCH ×2 (09:14→13:25)
[2021-02-01] MEDS: PANTOprazole 40 MG TAB PO SCH (09:14)
[2021-02-01] MEDS: ACYCLOVIR 400 MG TAB PO SCH (09:15)
[2021-02-01] MEDS: CIPROFLOXACIN / D5W 400 MG/200 ML BAG IV SCH (09:17)
[2021-02-01] MEDS ORDERED: POTASSIUM CHLORIDE CRTAB 20 MEQ TABCR PO STA (10:54)
--- NOTE | 2021-02-01 18:15 | Discharge Summary ---
Date of Service February 01, 2021 Admission HPI Per Admitting Provider 70 YOF with past medical history of: B-cell lymphoma on bendamustine (allergic reactions to Rituxan), gastric fundus mass, gastritis, cholecystectomy (>20 years ago), with biliary sphincterotomy in , MR. Patrick comes into the EMD today for complaints of abdominal pain, right lateral chest wall pain, and jaundice. The patient states that she fell on Tuesday night hitting her right chest wall and started to have some "banding like tightness around the front of her chest this waxed and waned up until Tuesday. Tuesday she had some diarrhea and abdominal pain that was associated with fever 101.5, she then came to the parking lot of the hospital, where she threw up 3 times and immediately felt better. She convinced her to take her home. Today her daughters came to see her and noticed that she was jaundiced and convinced her to come to the EMD. In the EMD she had routine labs drawn, CXR, CT scan of the abdomen and pelvis performed. Her CMP was noted for Elevated LFTs, elevated bilirubin, elevated ALKPo4, CT scan of the abdomen and pelvis was noted for ductal dilation with wall enhancement of the common hepatic and bile ducts with trace fluid within cortez hepatis. GI and GS was consulted by the EMD. Patient will be kept NPO and will obtain MRCP tonight. Will place on Rocephin 2GM IV q24 and Ertapenem 1G IV q24 hours. Patient has PCN allergy. Patient has had her COVID vaccines, her COVID test on admission is: NEGATIVE Principal Diagnosis 1. Choledocholithiasis 2. Cholangitis 3. Abnormal LFTsrelated to #1 4. Hypokalemiareplaced and resolved Discharge Exam General: Resting comfortably in her hosptial bed. NAD. HEENT: no scleral icterus appreciated today. Head is AT/NC buccal mucosa is moist and pink Neck: No JVD. Negative hepatojugular reflex Cardiac: RRR without M/G/R Lungs: CTA without W/R/R Abdomen: Normoactive X4. Soft and nontender in all quadrants. Extremities: No peripheral clubbing cyanosis or edema Neuro: A&O X4 cranial nerves II through XII are grossly intact no focal neuro deficits Skin: No obvious skin lesions or rashes Psych: Appropriate affect pleasant and cooperative Discharge Data Allergies Allergy/AdvReac Type Severity Reaction Status Date / Time Penicillins Allergy Intermediate HIVES A Verified 01/29/21 15:41 CHILD Sulfa (Sulfonamide Allergy Intermediate HIVES A Verified 01/29/21 15:41 Antibiotics) CHILD rituximab [From Rituxan] Allergy pain, Verified 01/29/21 15:41 nausea, swollen mouth and uvula levofloxacin AdvReac Mild LEG PAIN Verified 01/31/21 08:09 Consultations 01/29/21 18:05 Consult Gastroenterology Routine ED Decision to Admit Stat Procedures Performed Operation Date: 01/30/21 09:00 Actual Procedures p Endoscopic Retrograde Cholangiopancreatogram(Not Applicable) - Sayda Sommers, Ordered Studies 01/29/21 14:31 CT abd pelvis IV con only Stat IMPRESSION: 1. Interval development of biliary ductal dilatation with mild wall enhancement of the common hepatic and common bile ducts and trace fluid/infiltration within the cortez hepatis. The findings are nonspecific and cholangitis is within the differential. If abnormal liver function tests, GI consultation is recommended. 2. No significant change in splenomegaly and several hypodense splenic lesions since CT of December 24, 2020. Findings remain improved when compared to initial CT of December 03, 2019. 3. No change in indeterminate 2.7 cm right hepatic lobe lesion. 4. Redemonstration of a suspected submucosal lesion within the gastric cardia. 01/29/21 15:03 CT angio chest PE protocol Stat IMPRESSION: 1. No pulmonary emboli identified. 2. No acute process within the chest. 01/29/21 18:05 MR MRCP Stat IMPRESSION: 1. Cholecystectomy. Mild intrahepatic and extrahepatic biliary ductal dilation redemonstrated. The biliary wall thickening with cortez hepatis infiltration is better appreciated on the CT study of same day. Again, these findings should be correlated with laboratory analysis and clinical presentation to exclude cholangitis. 2. No choledocholithiasis. 3. Splenomegaly with several hypodense splenic lesions redemonstrated. 4. Unchanged indeterminate 2.7 cm lesion of the inferior right hepatic lobe. 5. Probable lesion of the gastric cardiac is noted. 01/30/21 [place] ERCP biliary ductal Routine IMPRESSION: Fluoroscopic assistance as above. Hospital Course (1) Cholangitis: Patient presented with jaundice and hyperbilirubinemia along with abdominal pain, nausea and vomiting CT of the abdomen and pelvis showed bile duct dilatation with cholangitis MRCP confirmed cholangitis with bile duct dilatation White blood cell count was normal Procalcitonin was normal at 0.7 Patient has been hemodynamically stable She is s/p ERCP that revealed stenosis of prior sphincterectomy with sludge. Patient subsequently had removal of sludge and 2 stents placed in the common bile duct Patient has since been started on Actigall Tolerated procedure well and has since been started/tolerating on clear liquids with further advanced to low fat diet GI on board. Appreciate recommendations Initially placed on Invanz empirically. This has poor anaerobic coverage. She has a reported allergy to penicillin and quinolones. Transitioned to Merrem After lengthy discussion with patient and what antibiotics she has tolerated that in the past and calling her home pharmacy, she has been on both ciprofloxacin and Levaquin multiple times and has tolerated this without ill effects. later changed to to Cipro/Flagyl as she will need 10 days of antibiotics--> tolerating this LFT's downtrending. No abd pain/n/v--> okay to D/C to home to FU with GI as an OP. Will need removal of stents in 6 weeks (2) Choledocholithiasis: S/p ERCP. See above (3) LFT elevation: Presenting total bilirubin: 6.9, AST/ALT: 324/530 Obstructive in nature S/p ERCP with sludge removal and insertion of stents. LFTs downtrending (total bilirubin: 2.0, AST/ALT: 90/209) (4) Hypokalemia: Supplemented. Replaced and resolved (5) Abnormal urinalysis: Urine culture showing contaminated specimen (6) B-cell lymphoma: Follows with Hem/ONC katie - She has completed her CHEMO regime- is in follow up phase - Continue Acyclovir prophy 400mg PO daily Total Time Total Time Spent Total Time Spent (In Minutes): 45 min including time spent with patient, coordination of care, and preparation of documentation Discharge Plan Discharge Items Patient Disposition: Home - Self-Care Reason For Visit: JAUNDICE Discharge Diagnosis: 1. Choledocholithiasis (sludge in the biliary tree) 2. cholangitis- "infection/inflammation of the biliary tree" 3. Abnormal Liver Function studies- d/t #1 and obstruction 4. Hypokalemia- replaced Activity: Resume your previous activity Non-emergency contact: Primary Care Provider and Ornithology Teacher Call non-emergency contact if: you have any medication questions, your symptoms worsen and you have a fever Follow-up/Referrals: Sigrid Reese MD [Primary Care Provider] - Sayda Sommers DO [Physician] - Diet: Low Fat Addtl Attending Provider Instructions: - you came to the hospital because of jaundice (yellow appearance of the skin) - this was because of abnormal liver function studies (that were high as a result of an obstruction in the biliary system because of sludge) - When there is an obstruction in this region, it can cause significant inflammation and subsequently cause infection - you were treated with antibiotics (which you need to completed a full course of) -Cipro is to be taken twice a day -flagyl is to be taken 3x/day - in addition, you had an ERCP (endoscopy) and had removal of the sludge in the biliary system and 2 stens were placed (to open the ducts to help prevent re- obstruction) - you need to follow up with Dr. Sommers in the office (2 weeks) to arrange for a follow up Endoscopy (ERCP) in 6 weeks for removal of these stent - maintain a low fat diet (as discussed, fat increases bile production and excretion) - GI has started you on Actigall (which is to help prevent sludge/stones from forming-- but unfortunately is not guaranteed to prevent this) - you should return to the ED for worsening pain, worsening jaundiced, nausea, vomiting, or fever >/=101 - follow up with your PCP: 7-10 days - you should have follow up labs drawn in 1 week (to further trend your liver function studies)--> at discretion of PCP or GI - avoid alcohol (given the abnormal liver function studies and while on flagyl as this can cause nausea and vomiting) Pending Studies at Discharge: No Stand-Alone Forms: My [facility] Medications and DC Order Prescriptions: New metronidazole 500 mg Tablet 500 mg PO TID Qty: 21 RF: 0 ursodiol 300 mg Capsule 300 mg PO BID Qty: 60 RF: 0 ciprofloxacin HCl [Cipro] 500 mg tablet 500 mg PO BID Qty: 20 RF: 0 Continued pantoprazole 40 mg tablet,delayed release (DR/EC) 40 mg PO QAM Qty: 30 RF: 5 potassium 99 mg Tablet 99 mg PO QAM RF: 0 vitamin B complex Tablet 1 tab PO QAM RF: 0 cholecalciferol (vitamin D3) [Vitamin D3] 2,000 unit Tablet 2,000 unit PO QAM RF: 0 calcium carbonate-vit D3-min 600 mg calcium- 400 unit Tablet 1 tab PO QAM RF: 0 magnesium oxide 400 mg magnesium Tablet 400 mg PO QAM RF: 0 biotin 400 mcg tablet 400 mcg PO DAILY RF: 0 acyclovir 400 mg tablet 400 mg PO BID RF: 0 zolmitriptan [Zomig] 2.5 mg Tablet 0 mg PO UD PRN (Reason: Migraine Headache) RF: 0 Discharge Orders: Discharge Order (Routine); Ordered 02/01/21 Ordered By: Judi Lopez/Other Patient Handouts: Low-Fat Cooking Tips, Adding Flavor to Low-Fat Meals, Anatomy of the Digestive System, Discharge Instructions for Hypokalemia, ED Diet, Low Fat Admission Data Admit Date/Time: 01/29/21 19:04 Attending Provider: Elmo Harp Admit Provider: Ricardo Eduardo Primary Care Provider: Sigrid Reese Other Providers: Elmo Harp ; Ricardo Eduardo ; Sayda Sommers Other Interventions: Discharge Summary Assessment (RN) Last Done: 02/01/21 12:15 Supervising Physician Co-Signing Physician Notes I supervised Judi Leavitt PA-C on the care of this patient. I interviewed and examined the patient independently of her. The plan is as written in her note except for any following changes/exceptions: None Feeling good today. No nausea or vomiting. No RUQ pain. Will continue oral abx x 10 total days. F/u with GI in 4-6 weeks for stent removal. Coding Level of Care Code D/C DAY MANAGEMENT >30 MINS Diagnoses Cholangitis K83.09 Choledocholithiasis K80.50 LFT elevation R79.89 Hypokalemia E87.6 Abnormal urinalysis R82.90 B-cell lymphoma C85.10
== END 2021-02-01 14:18 | disposition home or self-care (01) | DRG 446 ==
LOC: ED 12:23 → 3N 19:04 → SUATTDRO 19:04 → 3N 21:22